=== PATIENT | female | born 1950 | race Caucasian/White ===

== ENCOUNTER 2018-10-19 17:22 | Inpatient (IN) ==
[2018-10-19] MEDS ORDERED: 0.9 % Sodium Chloride 1,000 ML IVC ONE ×2 (17:29→22:00)
[2018-10-19] MEDS ORDERED: Azithromycin 500 MG in D5% in Water 250 ML IVPB ONE (17:29)
[2018-10-19] MEDS ORDERED: Piperacillin/Tazobactam 3.375 GM in Water for inj. (sterile) 20 ML 20 ML IVP ONE (17:29)
--- NOTE | 2018-10-19 17:36 | Emergency Department Note ---
Disposition Clinical Impression: Sepsis associated hypotension Disposition: Still a Patient General Adult HPI - General Stated complaint: ANTONINO Time Seen by Provider: 10/19/18 17:28 Source: EMS Mode of arrival: EMS Limitations: altered mental status Nursing Notes Reviewed: Yes Vital Signs Reviewed: Yes - History of Present Illness HPI Narrative: Attestation note: Patient was seen with the emergency medicine resident/nurse practitioner /physician hospital aides and assistants teacher/transitional resident/medical student: Dr. Panda Varghese I have personally performed a face to face evaluation on this patient. I have reviewed and agree with history and physical examination patient management and disposition. Briefly the salient points of the case are as follows: 68-year-old female nonverbal from dementia unit of local [facility] via EMS for hypoxia fever worsening mental status cough. Patient has rhonchi bilaterally with rattling she was 87% on room air went up to 93 with supplemental oxygen patient has no external signs of trauma or cellulitis patient is tachycardic hypoxic tachypnea with a sore suspected she is on Levaquin for pneumonia patient meets SIRS criteria and likely septic but not in shock or severe at this point. Patient eloped modified sepsis implementation with judicious fluids. Providing 45 minutes critical care service for this patient. Awaiting labs chest x-ray catheter UA antibiotics and blood cultures and admission. Past Medical History - Past Medical History Medical history: Reports: hyperlipidemia, hypertension, myocardial infarction, seizures Psychiatric history: Reports: anxiety, bipolar - Social History Smoking Status: Former smoker Alcohol use: Reports: none Drug use: Reports: none
[2018-10-19] MEDS ORDERED: Piperacillin/Tazobactam 3.375 GM in 0.9 % Sodium Chloride Mini Bag 100 ML IVPB ONE (17:42)
[2018-10-19 18:12] LABS: Basophils % 0.2 %; Hematocrit 27.5 % (35.3-44.9); Hemoglobin 9.1 g/dL (11.5-15.4); Immature Granulocytes % 0.5 % (0-4); Lymphocytes # 0.6 K/mcL (0.6-4.6); Lymphocytes % 4.2 %; Mean Corpuscular HGB Conc 33.1 g/dL (31.6-35.5); Mean Corpuscular Hemoglobin 29.4 pg (28.0-33.3); Mean Platelet Volume 10.9 fL (9.4-12.4); Monocytes # 1.1 K/mcL (0.0-1.3); Monocytes % 8.2 %; Platelet Count 302 K/mcL (140-400); Red Blood Count 3.09 M/mcL (3.82-4.97); Red Cell Distribution Width 15.1 % (11.5-14.5); Segmented Neutrophils % 86.9 %
--- NOTE | 2018-10-19 18:16 | Emergency Department Note ---
Disposition Clinical Impression: Sepsis associated hypotension, Severe sepsis, Hospital-acquired pneumonia Disposition: Admitted As Inpatient Condition: Fair Time of Disposition: 20:46 General Adult HPI - General Chief complaint: ED Shortness of Breath/Dyspnea Stated complaint: ANTONINO Time Seen by Provider: 10/19/18 17:28 Source: EMS Mode of arrival: EMS Limitations: altered mental status Nursing Notes Reviewed: Yes Vital Signs Reviewed: Yes - History of Present Illness HPI Narrative: 68-year-old female from a nursing facility history of Alzheimer's altered at all times does not speak normally able to walk they have noticed increased weakness decrease in her oxygen saturation as well as increased cough and congestion. They said they did get a fever of 102.1. She has been on Levaquin for 2-3 days for an upper respiratory infection. They said that her oxygen saturation was down to 88 when they arrived placed on oxygen 4 L should go up to the 90s. She normally is on oxygen. Otherwise difficult to get further history from patient due to mental status. Pain Scale: 0 - Related Data Home Medications Medication Instructions Recorded Confirmed Acetaminophen [Non-Aspirin] 650 mg PO Q4H PRN 10/19/18 10/19/18 Ammonium Lactate 1 appl TP BID 10/19/18 10/19/18 Aspirin Enteric Coated [Aspirin EC] 81 mg PO DAILY 10/19/18 10/19/18 Bisacodyl [Gentle Laxative] 10 mg RC DAILY PRN 10/19/18 10/19/18 Buspirone HCl [Buspar] 10 mg PO BID 10/19/18 10/19/18 Divalproex Sodium [Depakote 250 mg PO TID 10/19/18 10/19/18 Sprinkle] FLUoxetine HCl [Fluoxetine HCl] 40 mg PO DAILY 10/19/18 10/19/18 Gabapentin [Neurontin] 300 mg PO DAILY 10/19/18 10/19/18 Hyoscyamine SL [Levsin SL] 0.125 mg SL BID 10/19/18 10/19/18 Levothyroxine Sodium 112 mcg PO 0630 10/19/18 10/19/18 Magnesium Hydroxide [Milk of 30 ml PO Q24H PRN 10/19/18 10/19/18 Magnesia] Seamus/Poly/DEX Opth OINT [Maxitrol 1 appl BOTH EYES HS 10/19/18 10/19/18 OPTH Oint] Nystatin POWDER [Nystop] 1 appl TP TID 10/19/18 10/19/18 Quetiapine Fumarate [Seroquel] 25 mg PO BID 10/19/18 10/19/18 Quetiapine Fumarate [Seroquel] 100 mg PO BID 10/19/18 10/19/18 Sennosides/Docusate Sodium [Colace 1 each PO DAILY 10/19/18 10/19/18 2-in-1 Tablet] Vitamin E 400 unit PO DAILY 10/19/18 10/19/18 Allergies Allergy/AdvReac Type Severity Reaction Status Date / Time [place] Allergy Anaphylaxis Verified 10/19/18 17:35 Limitations: ROS unobtainable due to patients medical condition Past Medical History - Past Medical History Attestation: Yes The following information was validated with the patient. Source: patient Medical history: Reports: GERD, hyperlipidemia, hypertension, myocardial infarction, seizures, thyroid disease Psychiatric history: Reports: anxiety, bipolar, schizophrenia - Social History Smoking Status: Former smoker Smokeless Tobacco Status: No Alcohol use: Reports: none Drug use: Reports: none Physical Exam - General Limitations: altered mental status General appearance: lethargic - Head Head exam: atraumatic, normocephalic, normal inspection - Eye Eye exam: Present: normal appearance, PERRL, EOMI - ENT ENT exam: normal exam, normal oropharynx, mucous membranes moist - Neck Neck exam: Present: normal inspection, full ROM, trachea midline - Chest Chest inspection: Present: normal inspection, symmetric chest wall rise - Respiratory Respiratory exam: Present: wheezes (And rhonchi bilaterally). Absent: respiratory distress, stridor, accessory muscle use, prolonged expiratory phase - Cardiovascular Cardiovascular exam: Present: normal rhythm, tachycardia, normal heart sounds - Abdominal Exam Abdominal exam: Present: soft, Non-Tender, normal bowel sounds. Absent: tenderness, distention, guarding, rebound, rigidity - Extremities Exam Extremities exam: Present: normal inspection, full ROM. Absent: tenderness, pedal edema - Back Exam Back exam: Present: normal inspection, full ROM. Absent: tenderness - Expanded Neurological Exam Patient oriented to: Absent: person, place, time Coma Scale Eye Opening: Spontaneous Coma Scale Motor Response: Withdraws to Pain Coma Scale Verbal Response: Confused Coma Scale Total: 12 - Skin Skin exam: Present: warm, dry, intact, normal color Course Course Narrative: We will treat patient as sepsis she is not in severe sepsis at this time or septic shock. We will give patient 1 L of IV fluids and continue to monitor her. We will get CBC, BMP, blood cultures, lactate we will get chest x-ray and urine dialysis. Patient okay with this plan. Patient most likely has pneumonia clinically she failed Levaquin so we will start patient on broad-spectrum antibiotics is also could be due to aspiration. We will cover her with azithromycin, vancomycin, Zosyn. Patient stable at this time. Disposition most likely admission - Reevaluation(s) Reevaluation #1: Patient reevaluated and she had a mildly decreased blood pressure of 88/60. I ordered a second liter of IV fluids. Patient also received DuoNeb treatments. Time: 18:51 Reevaluation #2: Patient reevaluated after receiving 1 1/2 L of fluid patient's blood pressure has responded well is 98/63. With a map of 78. Patient did receive DuoNeb's her auction saturations went up to 98% after receiving that the wheezing was subsided but she is still rhonchorous. Time: 19:36 Vital Signs Temperature 99.0 F 10/19/18 17:23 Pulse Rate 114 10/19/18 17:23 Respiratory Rate 20 10/19/18 17:23 Blood Pressure 89/64 10/19/18 17:23 O2 Sat by Pulse Oximetry 89 10/19/18 17:23 Temperature 99.0 F 10/19/18 17:23 Pulse Rate 93 10/19/18 19:52 Respiratory Rate 20 10/19/18 19:52 Blood Pressure 93/66 10/19/18 19:52 O2 Sat by Pulse Oximetry 98 10/19/18 19:52 Oxygen Delivery Oxygen Delivery Nasal Cannula Medical Decision Making - [facility] Narrative Medical decision making narrative: Patient presented here as hypoxia and difficulty in breathing. She was shown to have a pneumonia dye focal was treated with as hospital acquired pneumonia t reated with Zosyn, azithromycin, vancomycin. She appears to be on Levaquin for approximate 2-3 days for upper respiratory infection. Patient did meet severe sepsis criteria as she did have an elevated lactate. Patient did receive her 30 mL/kg bolus of IV fluids. She responded well to this. Patient did not meet septic shock criteria. Her blood pressure did not respond well to fluids. Patient received DuoNeb's she was mildly hypoxic before that after receiving these her oxygen saturations turnaround further 98% well on 4 L. Patient is stable for the floor. Patient needs to be admitted for further evaluation. I spoke with the hospitalist Dr. Galvan who agreed to admit the patient to their service. Patient is admitted in stable condition. Chest X-Ray 10/19/18 17:28 IMPRESSION: Multifocal right lung pulmonary opacity. Findings may represent a multifocal pneumonia or asymmetric multifocal pulmonary edema. Recommend short interval follow-up examination, and radiographic follow-up to complete resolution. Enlarged cardiomediastinal silhouette is not further evaluated due to patient rotation. D/ / 10/19/2018 18:42:48 Aniceto Mercedes MD / judie Interpreting Provider: Aniceto Mercedes MD - Medical Records Medical records reviewed: Yes I reviewed the patient's medical records. - Lab Data Lab results reviewed: Yes I reviewed the patient's lab results. Result diagrams: 10/19/18 17:59 10/19/18 17:59 Lab Results 10/19/18 10/19/18 10/19/18 Range/Units 17:59 17:59 17:59 WBC 13.8 H (4.3-11.1) K/mcL RBC 3.09 L (3.82-4.97) M/mcL Hgb 9.1 L (11.5-15.4) g/dL Hct 27.5 L (35.3-44.9) % MCV 89.0 (83.0-100.0) fL MCH 29.4 (28.0-33.3) pg MCHC 33.1 (31.6-35.5) g/dL RDW 15.1 H (11.5-14.5) % Plt Count 302 (140-400) K/mcL MPV 10.9 (9.4-12.4) fL Immature Gran % 0.5 (0-4) % Seg Neutrophils % 86.9 % Lymphocytes % 4.2 % Monocytes % 8.2 % Eosinophils % 0.0 % Basophils % 0.2 % Neutrophils # 12.0 H (1.6-8.9) K/mcL Lymphocytes # 0.6 (0.6-4.6) K/mcL Monocytes # 1.1 (0.0-1.3) K/mcL Eosinophils # 0.0 (0.0-0.6) K/mcL Basophils # 0.0 (0.0-0.2) K/mcL Sodium 138 (136-145) mEq/L Potassium 3.7 (3.5-5.1) mEq/L Chloride 104 (98-107) mEq/L Carbon Dioxide 23 (23-29) mEq/L BUN 26 H (8-23) mg/dL Creatinine 0.47 L (0.60-1.20) mg/dL Est GFR ( Amer) > 60 (> 60) Est GFR (Non-Af Amer) > 60 (> 60) BUN/Creatinine Ratio 55 H (6-26) Glucose 177 H (70-105) mg/dL Calculated Osmolality 295 (280-300) Lactic Acid 2.8 H (0.5-2.2) mmol/L Calcium 8.0 L (8.6-10.3) mg/dL Troponin I 0.73 H* (< 0.04) ng/mL - Radiology Data Radiology results reviewed: Yes I reviewed the patient's radiology results. - EKG Data EKG #1 EKG attestation: Yes I reviewed and interpreted this EKG. EKG results narrative: EKG done at 1737 review by myself and attending shows sinus tachycardia at a rate of 109, ND interval 135, QRS 145 QTc 524. There is no acute ST changes no acute T-wave changes no other signs of ischemia she does have elevations in the ST segment in V2. No signs of hypertrophy, heart, heart block. No WPW/Brugada/HOCM. When compared with old EKG done 11/03/17 she also has the ST elevations in V2. Otherwise no other changes Sepsis Event Note - Evaluation Current Stage of Suspected Sepsis: severe sepsis Possible Source of Sepsis: pulmonary - Focused Exam Date of Encounter: 10/19/18 Time of Encounter: 18:52 Vital Signs: Vital Signs Temp Pulse Resp BP Pulse Ox 10/19/18 19:52 93 20 93/66 98 10/19/18 19:13 97 22 85/65 92 10/19/18 19:05 20 87 10/19/18 18:49 101 20 88/70 87 10/19/18 17:23 99.0 F 114 20 89/64 89 Respiratory Exam: Present: wheezes, rhonchi Cardiovascular Exam: Present: RRR Capillary Refill: < 2 seconds Peripheral Pulse Strength: 3+ normal Peripheral Pulse Location: Radial Skin Exam: normal turgor - Bedside Monitoring Bedside Ultrasound Performed: No Passive Leg raise/fluid bolus: fluid responsive
[2018-10-19 18:35] LABS: BUN/Creatinine Ratio 55 (6-26); Blood Urea Nitrogen 26 mg/dL (8-23); Carbon Dioxide 23 mEq/L (23-29); Chloride 104 mEq/L (98-107); Glucose 177 mg/dL (70-105); Osmolality,Calculated 295 (280-300); Potassium 3.7 mEq/L (3.5-5.1); Sodium 138 mEq/L (136-145); eGFR For Non-African Americans > 60 (> 60)
[2018-10-19] MEDS ORDERED: Ipratropium/Albuterol Neb 3 ML IH ONE (18:41)
[2018-10-19] MEDS: 0.9 % Sodium Chloride 1,000 ML IVC ONE ×2 (18:48→19:17)
[2018-10-19 18:52] LABS: Troponin I 0.73 ng/mL (< 0.04)
--- NOTE | 2018-10-19 21:34 | Internal Med History&Physical ---
<Kirk Arnold S - Last Filed: 10/20/18 00:13> Date of Encounter: 10/20/18 Time of Encounter: 22:20 Internal Medicine - H&P: HPI Chief complaint: PNA Admitted From: Long-term Nursing Facility Plans for Post Hospital Care: Transfer Detention Facility History of present illness: Ms. Douglass is a 68 year old female with PMH of alzheimer's, CAD, MO, hypothyroidism, constipation and GERD. She is here from a skilled nursing and failed outpatient PNA therapy with levaquin. She was given 2-3 days of LQ and a pperently didn't get any better so she was brought into [facility] for further evaluation. At baseline she doesn't speak at all times per ER resident note and per what the skilled nursing said, they have noticed increased weakness decrease in her oxygen saturation as well as increased cough and congestion. They said they did get a fever of 102.1, she has remained afebrile while here. Reported that her oxygen saturation was down to 88 when they arrived placed on oxygen 4 L should go up to the 90s. She normally is on oxygen, unknown how much. Patient unable to give any history. In the ER she was found to meet severe sepsis criteria. She was given fluid bolus and started on broad spectrum antibiotics. XR chest showed likely multifocal right lung pulmonary opacity. EKG showed shows sinus tachycardia at a rate of 109, MO interval 135, QRS 145 QTc 524. There is no acute ST changes no acute T-wave changes no other signs of ischemia she does have elevations in the ST segment in V2, which were previously noted on an old EKG. Cardiology was consulted by ER resident and Dr Cadena agrees the EKG does not show any ST elevation and thinks that patient can be trended with troponins to give aspirin and nitroglycerin as needed for chest pain. She continued to be hypotensive and instead of being transferred to for admission, she will go to the ICU. Past Med Surg Social Fam HX - Past Medical History Medical history: GERD, hyperlipidemia, hypertension, myocardial infarction, seizures, thyroid disease Additional medical history: Alzheimers. CAD Psychiatric history: anxiety, bipolar, schizophrenia - Social History Smoking Status: Former smoker Smokeless Tobacco Status: No Alcohol use: none Drug use: none Internal Medicine - H&P: Meds Acetaminophen [Non-Aspirin] 650 mg PO Q4H PRN 10/19/18 [History] Ammonium Lactate 1 appl TP BID 10/19/18 [History] Aspirin Enteric Coated [Aspirin EC] 81 mg PO DAILY 10/19/18 [History] Bisacodyl [Gentle Laxative] 10 mg RC DAILY PRN 10/19/18 [History] Buspirone HCl [Buspar] 10 mg PO BID 10/19/18 [History] Divalproex Sodium [Depakote Sprinkle] 250 mg PO TID 10/19/18 [History] FLUoxetine HCl [Fluoxetine HCl] 40 mg PO DAILY 10/19/18 [History] Gabapentin [Neurontin] 300 mg PO DAILY 10/19/18 [History] Hyoscyamine SL [Levsin SL] 0.125 mg SL BID 10/19/18 [History] Levothyroxine Sodium 112 mcg PO 0630 10/19/18 [History] Magnesium Hydroxide [Milk of Magnesia] 30 ml PO Q24H PRN 10/19/18 [History] Seamus/Poly/DEX Opth OINT [Maxitrol OPTH Oint] 1 appl BOTH EYES HS 10/19/18 [History] Nystatin POWDER [Nystop] 1 appl TP TID 10/19/18 [History] Quetiapine Fumarate [Seroquel] 25 mg PO BID 10/19/18 [History] Quetiapine Fumarate [Seroquel] 100 mg PO BID 10/19/18 [History] Sennosides/Docusate Sodium [Colace 2-in-1 Tablet] 1 each PO DAILY 10/19/18 [History] Vitamin E 400 unit PO DAILY 10/19/18 [History] Allergy/AdvReac Type Severity Reaction Status Date / Time [place] Allergy Anaphylaxis Verified 10/19/18 17:35 ROS unobtainable: due to mental status All Systems PM: A 10-system review of systems was performed and is negative for pertinent findings except as documented above in the HPI. - Constitutional Vitals: Temp Pulse Resp BP Pulse Ox 99.0 F 93 20 93/66 98 10/19/18 17:23 10/19/18 19:52 10/19/18 19:52 10/19/18 19:52 10/19/18 19:52 General appearance: Present: A&O X 0, disheveled. Absent: answers questions appropriately Exam: general - aox0, disschelved, unable to answer questions heent - dry MM, NCAT, sclera appear pale neck - no jvd, trachea midline cardio- tacycardia s1s2 cta lungs - decreased breath sounds with severe rhonchi, coarse breath sounds in all lung rao abd - soft NTND, no peritoneal signs, no rebound or guarding extremities - laying in position, unable to assess strength, no pitting edema skin - decreased capillary refill, decreased skin turgor, warm, dry psych- unable to assess neuro - unable to assess Internal Med - H&P Results - Labs CBC & Chem 7: 10/19/18 17:59 10/19/18 17:59 Labs: Short CBC 10/19/18 Range/Units 17:59 WBC 13.8 H (4.3-11.1) K/mcL Hgb 9.1 L (11.5-15.4) g/dL Hct 27.5 L (35.3-44.9) % Plt Count 302 (140-400) K/mcL Neutrophils # 12.0 H (1.6-8.9) K/mcL BMP 10/19/18 17:59 Sodium 138 Potassium 3.7 Chloride 104 Carbon Dioxide 23 BUN 26 H Creatinine 0.47 L Glucose 177 H Calcium 8.0 L Cardiac Enzymes 10/19/18 Range/Units 17:59 Troponin I 0.73 H* (< 0.04) ng/mL - Impressions ITS Impressions Chest X-Ray 10/19/18 17:28 IMPRESSION: Multifocal right lung pulmonary opacity. Findings may represent a multifocal pneumonia or asymmetric multifocal pulmonary edema. Recommend short interval follow-up examination, and radiographic follow-up to complete resolution. Enlarged cardiomediastinal silhouette is not further evaluated due to patient rotation. D/ / 10/19/2018 18:42:48 Aniceto Mercedes MD / judie Interpreting Provider: Aniceto Mercedes MD - Assessment and Plan (1) Severe sepsis Current Visit: Yes Status: Acute Assessment and plan: Pt presenting from skilled nursing with failed outpatient levaquin therapy, worsening symptoms and hypoxia - meets SIRS criteria for BP, HR, RR, and WBC count - has remained afebrile since admission - lactic acid 2.8 on admission, decreased to 1.9 after IVF given - got 2 L bolus of IVF, followed by another 1 L bolus at 22:00 due to continued hypotension and SBP in the 80's XR chest showing: - Multifocal right lung pulmonary opacity. - Findings may represent a multifocal pneumonia or asymmetric multifocal pulmonary edema Sepsis likely secondary to PNA, healthcare/hospital acquired; pt is an aspiration risk given mental status Plan: - finish fluid bolus followed by 100cc/hr 0.9% NS - blood cx pending - MRSA screen pending - sputum cx pending - urine antigens pending - lactic acid at 00:45 pending - continue vancomycin, zosyn and levaquin day 1 - keep O2 sat >88% - will add pressor support if MAP<65 - telemetry monitoring - continuous O2 monitoring - FEN: NPO - DVT prophylaxis: scd - consults: cardiology consulted in the setting of EKG changes and elevated troponins acute care surgery consulted for CVC placement, Dr Spear - dispo: will require ICU admission and IV abx Note that the pt is a DNR-CCA per paperwork. No family available at bedside. No POA on file. (2) Pneumonia Current Visit: Yes Status: Acute Assessment and plan: See plan as above for sepsis. Qualifiers: Pneumonia type: due to unspecified organism Laterality: unspecified laterality Lung location: unspecified part of lung Qualified Code(s): J18.9 - Pneumonia, unspecified organism (3) Anemia Current Visit: Yes Status: Acute Assessment and plan: No clear baseline of hemoglobin as pt only has one other recorded value from 2018. - hemoglobin on admission 9.1 - [facility] - in the setting of normal MCV, may be GI bleed Plan: - type and cross - FOBT pending - hold aspirin - H&H q6hr - protonix IVP q12hr - iron panel pending - transfuse to keep hgb>7 Qualifiers: Anemia type: unspecified type Qualified Code(s): D64.9 - Anemia, unspecified (4) Elevated troponin Current Visit: Yes Status: Acute Assessment and plan: Troponin 0.73 on admission. Likely secondary to severe sepsis but given abnormal EKG, will consult cardiology. ECHO pending. Trend troponin x3. (5) Leukocytosis Current Visit: Yes Status: Acute Assessment and plan: WBC 13.8, likely secondary to infection. Will continue to monitor. Qualifiers: Leukocytosis type: unspecified Qualified Code(s): D72.829 - Elevated white blood cell count, unspecified (6) Alzheimer disease Current Visit: No Status: Chronic Assessment and plan: Pt with severe Alzheimer's. Nonverbal. Continue home meds when reconciled. Qualifiers: Alzheimer's disease onset: unspecified onset Dementia behavioral disturbance: with behavioral disturbance Qualified Code(s): G30.9 - Alzheimer's disease, unspecified; F02.81 - Dementia in other diseases classified elsewhere with behavioral disturbance (7) Hypothyroidism Current Visit: No Status: Chronic Assessment and plan: con't synthroid when meds reconciled. Qualifiers: Hypothyroidism type: acquired Qualified Code(s): E03.9 - Hypothyroidism, unspecified (8) Sepsis associated hypotension Current Visit: Yes Status: Acute Assessment and plan: Continue to monitor BP. Last BP 80/62. Pt will be moved from 2A to ICU for further monitoring. CVC access by surgery. (9) DVT prophylaxis Current Visit: Yes Status: Acute Assessment and plan: scd (10) Acute metabolic encephalopathy Current Visit: Yes Status: Acute Assessment and plan: Likely secondary to underlying infxn versus dementia. (11) T2DM (type 2 diabetes mellitus) Current Visit: No Status: Chronic Assessment and plan: Not on home rx for T2DM but glucose elevated on admission. Accucheck q6hr since NPO. LDSS. HbA1c pending. Qualifiers: Diabetes mellitus intermediate teacher insulin use: without shelter use Diabetes mellitus complication status: with hyperglycemia Qualified Code(s): E11.65 - Type 2 diabetes mellitus with hyperglycemia - Time Spent With Patient Total time spent is greater than 50% in coordination of care (as documented) at patient's floor/unit and/or counseling patient: 25 - 35 minutes <Sharif Batres - Last Filed: 10/20/18 00:44> Date of Encounter: 10/19/18 Internal Medicine - H&P: HPI History of present illness: Ms. Douglass is a 68 year old female All Systems PM: A 10-system review of systems was performed and is negative for pertinent findings except as documented above in the HPI. - Constitutional Vitals: Temp Pulse Resp BP Pulse Ox 96.3 F L 84 18 105/81 96 10/19/18 23:30 10/19/18 23:30 10/19/18 23:30 10/19/18 23:30 10/19/18 23:30 Internal Med - H&P Results - Labs CBC & Chem 7: 10/19/18 17:59 10/19/18 17:59 Labs: Short CBC 10/19/18 Range/Units 17:59 WBC 13.8 H (4.3-11.1) K/mcL Hgb 9.1 L (11.5-15.4) g/dL Hct 27.5 L (35.3-44.9) % Plt Count 302 (140-400) K/mcL Neutrophils # 12.0 H (1.6-8.9) K/mcL BMP 10/19/18 17:59 Sodium 138 Potassium 3.7 Chloride 104 Carbon Dioxide 23 BUN 26 H Creatinine 0.47 L Glucose 177 H Calcium 8.0 L Cardiac Enzymes 10/19/18 10/19/18 Range/Units 17:59 22:03 Troponin I 0.73 H* 0.65 H* (< 0.04) ng/mL - Impressions ITS Impressions Chest X-Ray 10/19/18 17:28 IMPRESSION: 1. Multifocal right lung pulmonary opacity. Findings may represent a multifocal pneumonia or asymmetric multifocal pulmonary edema. 2. Enlarged cardiomediastinal silhouette is not further evaluated due to patient rotation. RECOMMENDATION: Recommend short interval follow-up examination, and radiographic follow-up to complete resolution. D/ / 10/19/2018 18:42:48 Aniceto Mercedes MD / judie Interpreting Provider: Aniceto Mercedes MD - Time Spent With Patient Total time spent is greater than 50% in coordination of care (as documented) at patient's floor/unit and/or counseling patient: - Attending Attestation I saw and evaluated the patient. I reviewed the residents note, performed my own physical examination and agree with findings and plan as documented in the residents note. Patient seen and examined on 10/19/18. Patient presented with pneumonia, has baseline dementia. Failed outpatient management. In ER patient had low blood pressures, despite fluid resuscitation. Discussed with surgery, and central line will be placed if needed. Blood pressures have improved since coming to the ICU. We will continue to monitor closely, and treat sepsis/pneumonia as above. Lactic acid and troponin both are declining. Continue to trend troponin, echo in the morning with cardiology consultation.
[2018-10-19] MEDS ORDERED: Naloxone 0.4 MG/ML INJ IVP PRN (21:35)
[2018-10-19] MEDS ORDERED: *HR* Dextrose 50 % in Water (Syg) 50 ML SYRINGE IVP PRN (22:11)
[2018-10-19] MEDS ORDERED: D5% in Water 1,000 ML IVC PRN (22:11)
[2018-10-19] MEDS ORDERED: Dextrose Gel 15 GM/37.5 ML TUBE PO PRN ×2 (22:11)
[2018-10-19] MEDS: Levalbuterol Neb 1.25 MG/3 ML IH SCH (22:30)
[2018-10-19] MEDS ORDERED: 0.9 % Sodium Chloride 1,000 ML IVC SCH (22:30)
[2018-10-19] MEDS: Insulin LISPRO 300 UNITS/3 ML VIAL SQ SCH (23:15)
[2018-10-19 23:23] LABS: % Iron Saturation 3 % (15-50); Iron 10 mcg/dL (50-170); Transferrin 216 mg/dL (203-362)
[2018-10-20] MEDS: Piperacillin/Tazobactam 3.375 GM in 0.9 % Sodium Chloride Mini Bag 100 ML IVPB SCH ×3 (01:00→17:18)
[2018-10-20 02:02] LABS: Hematocrit 26.1 % (35.3-44.9)
[2018-10-20 02:12] LABS: Hemoglobin 8.3 g/dL (11.5-15.4)
[2018-10-20] MEDS: Levalbuterol Neb 1.25 MG/3 ML IH SCH ×5 (03:42→22:08)
[2018-10-20 04:28] LABS: Bilirubin,Urine Negative (Negative); Blood,Urine Trace (Negative); Clarity,Urine Cloudy (Clear); Color,Urine Yellow (Yellow); Glucose,Urine (UA) Normal (Normal); Ketones,Urine Negative (Negative); Leukocyte Esterase,Urine Moderate (Negative); Nitrite,Urine Negative (Negative); Protein,Urine 30 mg/dL (Neg-Trace); Specific Gravity,Urine > 1.030 (1.010-1.025); Urobilinogen,Urine Normal (Normal)
[2018-10-20 04:30] LABS: Bacteria,Urine None Seen per hpf (None-Few); Hyaline Casts,Urine Moderate per lpf (None-Few); RBC,Urine 0-3 per hpf (0-3); Squamous Epithelial Cell,Urine Many per lpf (None-Few); WBC,Urine TNTC per hpf (0-3)
[2018-10-20 05:03] LABS: Hematocrit 26.5 % (35.3-44.9); Hemoglobin 8.3 g/dL (11.5-15.4); Mean Corpuscular HGB Conc 31.3 g/dL (31.6-35.5); Mean Corpuscular Hemoglobin 28.9 pg (28.0-33.3); Mean Corpuscular Volume 92.3 fL (83.0-100.0); Mean Platelet Volume 11.2 fL (9.4-12.4); Platelet Count 244 K/mcL (140-400); Red Blood Count 2.87 M/mcL (3.82-4.97); Red Cell Distribution Width 15.4 % (11.5-14.5)
[2018-10-20 05:23] LABS: BUN/Creatinine Ratio 58 (6-26); Blood Urea Nitrogen 18 mg/dL (8-23); Calcium 7.9 mg/dL (8.6-10.3); Carbon Dioxide 22 mEq/L (23-29); Chloride 110 mEq/L (98-107); Glucose 88 mg/dL (70-105); Osmolality,Calculated 293 (280-300); Potassium 3.5 mEq/L (3.5-5.1); Sodium 141 mEq/L (136-145); eGFR For Non-African Americans > 60 (> 60)
[2018-10-20] MEDS: Pantoprazole 40 MG VIAL IVP SCH ×2 (07:32→17:15)
[2018-10-20] MEDS: Insulin LISPRO 300 UNITS/3 ML VIAL SQ SCH ×4 (07:32→20:58)
--- NOTE | 2018-10-20 07:44 | Internal Med Progress Note ---
Hospitalist Progress Note - Encounter Date of Encounter: 10/20/18 Time of Encounter: 07:32 - Subjective Interval History: Patient seen and examined this morning at bedside. No acute events. Patient had 3 50 mL urine output since midnight. Patient altered and not able to offer any complaints however this is likely her baseline per previous reports. P atient had a bowel movement which was nonbloody or melanotic. - Exam Vitals: Temp Pulse Resp BP Pulse Ox 98.2 F 83 19 101/75 92 10/20/18 04:18 10/20/18 07:00 10/20/18 07:00 10/20/18 07:00 10/20/18 07:00 Exam: General: In no acute distress. Respiratory exam: no accessory muscle use. Diffuse rhonchi bilaterally Cardiovascular exam: RRR, +S1, +S2. no murmur, gallop, rubs. GI/Abdominal exam: Non-tender, Non-distended, normal bowel sounds, soft, no peritoneal signs. Extremities exam: no pedal edema, pulses palpable in b/l lower extremities. no calf tenderness Neurological exam: awake and alert, not fully cooperative, no focal deficits appreciated Skin exam: No skin rash noted - Assessment and Plan (1) Sepsis associated hypotension Current Visit: Yes Status: Acute (2) Severe sepsis Current Visit: Yes Status: Acute (3) Pneumonia Current Visit: Yes Status: Acute (4) DVT prophylaxis Current Visit: Yes Status: Acute (5) Anemia Current Visit: Yes Status: Acute (6) Elevated troponin Current Visit: Yes Status: Acute (7) Leukocytosis Current Visit: Yes Status: Acute (8) Alzheimer disease Current Visit: No Status: Chronic (9) Hypothyroidism Current Visit: No Status: Chronic (10) Acute metabolic encephalopathy Current Visit: Yes Status: Acute (11) T2DM (type 2 diabetes mellitus) Current Visit: No Status: Chronic - Summary of Assessment and Plan Summary of Assessment and Plan: Assessment Severe sepsis Multifocal Pneumonia unclear organism Anemia Elevated troponin Alzheimer's dementia- nonverbal Acute metabolic encephalopathy Diabetes Hypothyroidism DVT prophylaxis Plan - Improved after IV fluid resuscitation appropriately via central line put in by surgery. Continue empiric vancomycin and Zosyn and Levaquin. Follow blood, urine and sputum cultures, MRSA screen and urine antigen. Will descalate by tomorrow. - Anemia. Hb downtrending after some IV fluids but stabilized now. Continue to trend hemoglobin. Not on anticoagulation. Follow-up stool occult. Has iron deficiency likely given mental status. Continue Protonix. - Troponins downtrending. Likely related to sepsis. f/u ECHO. Cardiology consulted. - Continue home Synthroid, sliding scale insulin and Accu-Cheks. Low A1c - Will resume PO meds after speech evaluation - Transfer out of ICU to telemetry. - Time Spent with Patient Total time spent is greater than 50% in coordination of care (as documented) at patient's floor/unit and/or counseling patient: Internal Medicine: Result - Labs CBC & Chem 7: 10/20/18 04:35 10/20/18 04:35 Labs: Short CBC 10/19/18 10/20/18 10/20/18 Range/Units 17:59 01:52 04:35 WBC 13.8 H 6.8 D (4.3-11.1) K/mcL Hgb 9.1 L 8.3 L 8.3 L (11.5-15.4) g/dL Hct 27.5 L 26.1 L 26.5 L (35.3-44.9) % Plt Count 302 244 (140-400) K/mcL Neutrophils # 12.0 H (1.6-8.9) K/mcL BMP 10/19/18 10/20/18 17:59 04:35 Sodium 138 141 Potassium 3.7 3.5 Chloride 104 110 H Carbon Dioxide 23 22 L BUN 26 H 18 Creatinine 0.47 L 0.31 L Glucose 177 H 88 Calcium 8.0 L 7.9 L Cardiac Enzymes 10/19/18 10/19/18 10/20/18 Range/Units 17:59 22:03 04:35 Troponin I 0.73 H* 0.65 H* 0.26 H* (< 0.04) ng/mL Urine 10/20/18 Range/Units 04:00 Urine Color Yellow (Yellow) Urine Clarity Cloudy A (Clear) Urine pH 6.0 (5.0-8.0) pH Units Ur Specific [place] > 1.030 H (1.010-1.025) Urine Protein 30 H (Neg-Trace) mg/dL Urine Glucose (UA) Normal (Normal) mg/dL - Impressions Impressions Chest X-Ray 10/19/18 17:28 IMPRESSION: 1. Multifocal right lung pulmonary opacity. Findings may represent a multifocal pneumonia or asymmetric multifocal pulmonary edema. 2. Enlarged cardiomediastinal silhouette is not further evaluated due to patient rotation. RECOMMENDATION: Recommend short interval follow-up examination, and radiographic follow-up to complete resolution. D/ / 10/19/2018 18:42:48 Aniceto Mercedes MD / judie Interpreting Provider: Aniceto Mercedes MD Consult Discharge Plan - Plan Referrals: Yang Kyle MD [Primary Care Provider] - (3) Pneumonia Qualifiers: Pneumonia type: due to unspecified organism Laterality: unspecified laterality Lung location: unspecified part of lung Qualified Code(s): J18.9 - Pneumonia, unspecified organism (5) Anemia Qualifiers: Anemia type: unspecified type Qualified Code(s): D64.9 - Anemia, unspecified (7) Leukocytosis Qualifiers: Leukocytosis type: unspecified Qualified Code(s): D72.829 - Elevated white blood cell count, unspecified (8) Alzheimer disease Qualifiers: Alzheimer's disease onset: unspecified onset Dementia behavioral disturbance: with behavioral disturbance Qualified Code(s): G30.9 - Alzheimer's disease, unspecified; F02.81 - Dementia in other diseases classified elsewhere with behavioral disturbance (9) Hypothyroidism Qualifiers: Hypothyroidism type: acquired Qualified Code(s): E03.9 - Hypothyroidism, unspecified (11) T2DM (type 2 diabetes mellitus) Qualifiers: Diabetes mellitus superintendent [employer] insulin use: without snf use Diabetes mellitus complication status: with hyperglycemia Qualified Code(s): E11.65 - Type 2 diabetes mellitus with hyperglycemia
[2018-10-20] MEDS ORDERED: Azithromycin 500 MG in D5% in Water 250 ML IVPB SCH (08:00)
--- NOTE | 2018-10-20 08:46 | Cardiology Consult Note ---
Date of Encounter: 10/20/18 Time of Encounter: 10:00 Assessment and Plan (1) Elevated troponin Current Visit: Yes Status: Acute -She presents to the ED with the elevated troponin 0.73 which has been trending down 0.65 -> 0.26 -Her most recent echocardiogram showed an LVEF of 40-45%, moderate segmental left ventricle systolic function -EKG in the ED was negative for any ST-T changes, heart strain/block, brugada, WPW, HOCM -Patient's chest x-ray showed multifocal right lung pulmonary opacity with concerns for multifocal pneumonia or asymmetric multifocal pulmonary edema -Elevated troponins were likely secondary to demand ischemia because of her se jin sepsis and pneumonia -Medical management daniel be recommended at this point and no indications for any coronary intervention Discussion w patient/family: The assessment and plan as outlined above was discussed with the patient and/or family members who expressed understanding and agreement. All questions were answered. Thank you for involving us in the care of your patient. Please call with any questions. History of Present Illness Consult date: 10/20/18 History of present illness: Ms. Douglass is a 68 year old female past medical history of hypertension, hyperlipidemia who [facility] because of decrease in her oxygen sats and increasing weakness, cough and congestion. Patient was found to have multifocal right lung pulmonary opacities with concerns for pneumonia . She also met the SIRS criteria . Cardiology was consulted because of elevated troponins of 0.73 admission which have been trending down ever since then, most recent value being 0.26. Her EKG showed a sinus tachycardia at a rate of 109, no ST-T changes/LVH/Brugada/WPW. Patient has a history of arthrosclerotic heart disease and is on aspirin. I spoke to the nurse at the [facility] and learnt that patient has not had any stress tests in the recent past or Hx of any stent placement /CABG. Her most recent echocardiogram showed an LVEF of 40-45% which was reduced from her last echo from 06/24/18 which showed an LVEF of 60%. Past Med Surg Social Fam HX - Past Medical History Medical history: GERD, hyperlipidemia, hypertension, myocardial infarction, seizures, thyroid disease Additional medical history: Alzheimers. CAD Psychiatric history: anxiety, bipolar, schizophrenia - Past Surgical History Additional surgical history: unable to do history w/pt due to incomprehensable speech - Social History Smoking Status: Former smoker Smokeless Tobacco Status: No Alcohol use: none Drug use: none Medications and Allergies Acetaminophen [Non-Aspirin] 650 mg PO Q4H PRN 10/19/18 [History] Ammonium Lactate 1 appl TP BID 10/19/18 [History] Aspirin Enteric Coated [Aspirin EC] 81 mg PO DAILY 10/19/18 [History] Bisacodyl [Gentle Laxative] 10 mg RC DAILY PRN 10/19/18 [History] Buspirone HCl [Buspar] 10 mg PO BID 10/19/18 [History] Divalproex Sodium [Depakote Sprinkle] 250 mg PO TID 10/19/18 [History] FLUoxetine HCl [Fluoxetine HCl] 40 mg PO DAILY 10/19/18 [History] Gabapentin [Neurontin] 300 mg PO DAILY 10/19/18 [History] Hyoscyamine SL [Levsin SL] 0.125 mg SL BID 10/19/18 [History] Levothyroxine Sodium 112 mcg PO 0630 10/19/18 [History] Magnesium Hydroxide [Milk of Magnesia] 30 ml PO Q24H PRN 10/19/18 [History] Seamus/Poly/DEX Opth OINT [Maxitrol OPTH Oint] 1 appl BOTH EYES HS 10/19/18 [History] Nystatin POWDER [Nystop] 1 appl TP TID 10/19/18 [History] Quetiapine Fumarate [Seroquel] 25 mg PO BID 10/19/18 [History] Quetiapine Fumarate [Seroquel] 100 mg PO BID 10/19/18 [History] Sennosides/Docusate Sodium [Colace 2-in-1 Tablet] 1 each PO DAILY 10/19/18 [His tory] Vitamin E 400 unit PO DAILY 10/19/18 [History] Allergy/AdvReac Type Severity Reaction Status Date / Time [place] Allergy Anaphylaxis Verified 10/19/18 17:35 ROS unobtainable: due to mental status All Systems Review: The remainder of the systems were reviewed and are negative Physical Examination Vital Signs, Last 4 Hours Temp Pulse Resp BP Pulse Ox 10/20/18 08:00 81 20 99/82 92 10/20/18 07:56 98.3 F 10/20/18 07:45 82 10/20/18 07:00 83 19 101/75 92 10/20/18 06:00 90 20 109/59 94 10/20/18 05:00 92 26 104/87 94 Other: Gen.: Vitals noted. No acute distress. Alert, awake and oriented * [address], [address], and time, well developed, well-nourished resting comfortably in bed. Pl [place]. HEENT: oropharynx clear, Normocephalic, atraumatic, MMM Neck: supple, no JVD, no lymphadenopathy, no carotid bruit. Cardiac: RRR, no murmur, +S1/S2, No BLE edema, PMI non-displaced Pulmonary: CTA bilaterally, no wheezes, rales or rhonchi, equal chest expansion, unlabored breathing Abdomen: soft, nontender, BS noted, no guarding, non- distended. No organomegaly, no pulsatile masses, Skin: warm and dry, no visible lesions. Feels warm, clammy, no rashes, no lesions, no erythema MSK: ROM not assessed. no joint swelling noted, gait not assessed while in bed. Non tender calf or clubbing, no cyanosis/clubbing/ or edema Neuro: A&O, moves all extremities, no focal deficits, sensation intact Psych: Appropriate mood and behavior, normal speech, Results 10/20/18 04:35 10/20/18 04:35 Lab Results 10/19/18 10/19/18 10/19/18 17:59 17:59 22:03 WBC 13.8 H Hgb 9.1 L Hct 27.5 L Plt Count 302 Sodium 138 Potassium 3.7 Chloride 104 Carbon Dioxide 23 BUN 26 H Creatinine 0.47 L Glucose 177 H Calcium 8.0 L Troponin I 0.73 H* 0.65 H* 10/20/18 10/20/18 10/20/18 01:52 04:35 04:35 WBC 6.8 D Hgb 8.3 L 8.3 L Hct 26.1 L 26.5 L Plt Count 244 Sodium Potassium Chloride Carbon Dioxide BUN Creatinine Glucose Calcium Troponin I 0.26 H* 10/20/18 04:35 WBC Hgb Hct Plt Count Sodium 141 Potassium 3.5 Chloride 110 H Carbon Dioxide 22 L BUN 18 Creatinine 0.31 L Glucose 88 Calcium 7.9 L Troponin I Consult Discharge Plan - Plan Referrals: Yang Kyle MD [Primary Care Provider] -
[2018-10-20] MEDS ORDERED: Levofloxacin 750 MG/150 ML 750 MG/150 ML BAG IVPB SCH (09:00)
[2018-10-20 10:01] LABS: Estimated Average Glucose 128 mg/dl; Hemoglobin A1C 6.1 %
--- NOTE | 2018-10-20 10:23 | Electrocardiograph Report ---
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
[2018-10-20] MEDS: 0.9 % Sodium Chloride 1,000 ML IVC SCH (17:14)
[2018-10-20] MEDS: Aspirin 81 MG TAB.CHEW PO SCH (20:45)
[2018-10-20] MEDS: Metoprolol XL (24 HR) Succ 25 MG TAB.ER.24H PO SCH (20:48)
[2018-10-21] MEDS: Piperacillin/Tazobactam 3.375 GM in 0.9 % Sodium Chloride Mini Bag 100 ML IVPB SCH ×3 (02:16→16:23)
[2018-10-21] MEDS: 0.9 % Sodium Chloride 1,000 ML IVC SCH (02:19)
[2018-10-21] MEDS: Levalbuterol Neb 1.25 MG/3 ML IH SCH ×4 (03:28→21:39)
[2018-10-21 05:13] LABS: Basophils % 0.5 %; Hematocrit 26.4 % (35.3-44.9); Hemoglobin 8.6 g/dL (11.5-15.4); Immature Granulocytes % 0.3 % (0-4); Lymphocytes # 0.9 K/mcL (0.6-4.6); Lymphocytes % 12.6 %; Mean Corpuscular HGB Conc 32.6 g/dL (31.6-35.5); Mean Corpuscular Hemoglobin 28.4 pg (28.0-33.3); Mean Corpuscular Volume 87.1 fL (83.0-100.0); Monocytes # 0.9 K/mcL (0.0-1.3); Monocytes % 11.6 %; Neutrophils # 5.6 K/mcL (1.6-8.9); Platelet Count 321 K/mcL (140-400); Red Blood Count 3.03 M/mcL (3.82-4.97); Red Cell Distribution Width 14.9 % (11.5-14.5)
[2018-10-21 05:30] LABS: BUN/Creatinine Ratio 24 (6-26); Blood Urea Nitrogen 8 mg/dL (8-23); Calcium 8.6 mg/dL (8.6-10.3); Carbon Dioxide 24 mEq/L (23-29); Chloride 102 mEq/L (98-107); Glucose 85 mg/dL (70-105); Osmolality,Calculated 276 (280-300); Potassium 3.7 mEq/L (3.5-5.1); Sodium 134 mEq/L (136-145); eGFR For Non-African Americans > 60 (> 60)
[2018-10-21] MEDS: Pantoprazole 40 MG VIAL IVP SCH (08:37)
[2018-10-21] MEDS: Insulin LISPRO 300 UNITS/3 ML VIAL SQ SCH ×4 (08:39→22:48)
--- NOTE | 2018-10-21 10:00 | Internal Med Progress Note ---
Hospitalist Progress Note - Encounter Date of Encounter: 10/21/18 Time of Encounter: 09:38 - Subjective Interval History: Patient seen and examined this morning at bedside. No acute overnight events. Patient nonverbal and not able to comprehend any question. - Exam Vitals: Temp Pulse Resp BP Pulse Ox 97.8 F 85 16 126/86 90 10/21/18 07:22 10/21/18 07:22 10/21/18 07:22 10/21/18 07:22 10/21/18 07:22 Exam: General: In no acute distress. Respiratory exam: no accessory muscle use. Diffuse rhonchi bilaterally Cardiovascular exam: RRR, +S1, +S2. no murmur, gallop, rubs. GI/Abdominal exam: Non-tender, Non-distended, soft, no peritoneal signs. Extremities exam: no pedal edema Neurological exam: awake and alert, non verbal, not able to comprehend question. Skin exam: No skin rash noted - Assessment and Plan (1) Sepsis associated hypotension Current Visit: Yes Status: Acute (2) Severe sepsis Current Visit: Yes Status: Acute (3) Pneumonia Current Visit: Yes Status: Acute (4) DVT prophylaxis Current Visit: Yes Status: Acute (5) Anemia Current Visit: Yes Status: Acute (6) Elevated troponin Current Visit: Yes Status: Acute (7) Leukocytosis Current Visit: Yes Status: Acute (8) Alzheimer disease Current Visit: No Status: Chronic (9) Hypothyroidism Current Visit: No Status: Chronic (10) Acute metabolic encephalopathy Current Visit: Yes Status: Acute (11) T2DM (type 2 diabetes mellitus) Current Visit: No Status: Chronic - Summary of Assessment and Plan Summary of Assessment and Plan: Assessment Severe sepsis Multifocal Pneumonia unclear organism Anemia Elevated troponin Alzheimer's dementia- nonverbal Acute metabolic encephalopathy Diabetes Hypothyroidism DVT prophylaxis Plan - Improved after IV fluid resuscitation. BP now stable. TLC removed - c/w empiric vancomycin and Zosyn. Levaquin stopped. blood culture NGTD, urine with no growth. Positive MRSA screen and negative urine antigen. - Hb stable. Anemia likely from iron deficiency based on iron study. Start iron supplement. Follow-up stool occult. trend hb. transfuse to keep hb >8 given. - ECHO with reduced EF of 40-45%. Cardiology recommendation appreciated. ACS cannot be excluded, but possibly type II [place]. given poor overall status conservative strategy recommended. c/w aspirin, statin and metoprolol - Continue home Synthroid, sliding scale insulin and Accu-Cheks. - resume PO meds. Feeding with superevision - Time Spent with Patient Total time spent is greater than 50% in coordination of care (as documented) at patient's floor/unit and/or counseling patient: Internal Medicine: Result - Labs CBC & Chem 7: 10/21/18 04:57 10/21/18 04:57 Labs: Short CBC 10/21/18 Range/Units 04:57 WBC 7.5 (4.3-11.1) K/mcL Hgb 8.6 L (11.5-15.4) g/dL Hct 26.4 L (35.3-44.9) % Plt Count 321 (140-400) K/mcL Neutrophils # 5.6 (1.6-8.9) K/mcL BMP 10/21/18 04:57 Sodium 134 L Potassium 3.7 Chloride 102 Carbon Dioxide 24 BUN 8 Creatinine 0.33 L Glucose 85 Calcium 8.6 Cardiac Enzymes 10/20/18 Range/Units 10:40 Troponin I 0.22 H* (< 0.04) ng/mL Consult Discharge Plan - Plan Referrals: Yang Kyle MD [Primary Care Provider] - (3) Pneumonia Qualifiers: Pneumonia type: due to unspecified organism Laterality: unspecified laterality Lung location: unspecified part of lung Qualified Code(s): J18.9 - Pneumonia, unspecified organism (5) Anemia Qualifiers: Anemia type: unspecified type Qualified Code(s): D64.9 - Anemia, unspecified (7) Leukocytosis Qualifiers: Leukocytosis type: unspecified Qualified Code(s): D72.829 - Elevated white blood cell count, unspecified (8) Alzheimer disease Qualifiers: Alzheimer's disease onset: unspecified onset Dementia behavioral disturbance: with behavioral disturbance Qualified Code(s): G30.9 - Alzheimer's disease, unspecified; F02.81 - Dementia in other diseases classified elsewhere with beha vioral disturbance (9) Hypothyroidism Qualifiers: Hypothyroidism type: acquired Qualified Code(s): E03.9 - Hypothyroidism, unspecified (11) T2DM (type 2 diabetes mellitus) Qualifiers: Diabetes mellitus senior care insulin use: without watermaster use Diabetes mellitus complication status: with hyperglycemia Qualified Code(s): E11.65 - Type 2 diabetes mellitus with hyperglycemia
[2018-10-21] MEDS: Metoprolol XL (24 HR) Succ 25 MG TAB.ER.24H PO SCH (10:21)
[2018-10-21] MEDS: Aspirin 81 MG TAB.CHEW PO SCH (10:21)
--- NOTE | 2018-10-21 11:36 | Cardiology Progress Note ---
Date of Encounter: 10/21/18 Time of Encounter: 11:34 Assessment and Plan (1) Elevated troponin Current Visit: Yes Status: Acute Elevated troponin, decreasing. Mildly reduced LV function noted on echocardiogram, which could be related to sepsis, but ACS cannot be excluded. No acute ECG changes. Given her infectious issues and multiple chronic comorbidities, I would recommend a conservative strategy of medical therapy. Continue aspirin/statin/BB therapy. She does not appear to be a good candidate for cardiac catheterization, which is unlikely to improve her current quality of life. No further inpatient cardiology recommendations. Please call with any questions or concerns. Discussion w patient/family: The assessment and plan as outlined above was discussed with the patient and/or family members who expressed understanding and agreement. All questions were answered. Thank you for involving us in the care of your patient. Please call with any questions. Subjective Principal diagnosis: Sepsis Interval history: Overall, condition is largely unchanged. At baseline, she seems to be nonverbal. No obvious change in cardiac status. Serial troponin measurements decreasing. Anemia remains, but appears stable. Currently being treated for multifocal pneumonia and presumed sepsis. Objective Vital Signs, Last 4 Hours Temp Pulse Resp BP Pulse Ox 10/21/18 11:05 99.0 F 92 18 115/70 91 10/21/18 09:59 18 90 General: No Apparent Distress, Other (Chronically ill-appearing.) HEENT: Atraumatic, Normocephaly, Mucus Membranes Moist Neck: No JVD, Normal carotid pulses Cardiac: Other (Distant, but appears regular. No obvious murmurs.) Lungs: Other (Poor effort, shallow) Neuro: Other (Nonverbal, contractured) Abdomen: Soft, Non-Tender Skin: No rashes noted on visualized skin Musculoskeletal: No Chest Wall Tenderness Extremities: No Clubbing, No Cyanosis, No Edema Results 10/21/18 04:57 10/21/18 04:57 Lab Results 10/20/18 10/21/18 10/21/18 10:40 04:57 04:57 WBC 7.5 Hgb 8.6 L Hct 26.4 L Plt Count 321 Sodium 134 L Potassium 3.7 Chloride 102 Carbon Dioxide 24 BUN 8 Creatinine 0.33 L Glucose 85 Calcium 8.6 Troponin I 0.22 H* - Imaging and Cardiology Echo: report reviewed Consult Discharge Plan - Plan Referrals: Yang Kyle MD [Primary Care Provider] -
[2018-10-21] MEDS: Divalproex Sodium 125 MG CAPSULE PO SCH ×2 (16:23→22:48)
[2018-10-21] MEDS: BUSPIRONE HCL 10 MG TABLET PO SCH (22:48)
[2018-10-22] MEDS ORDERED: Acetaminophen 325 MG TABLET PO PRN (00:59)
[2018-10-22] MEDS: Piperacillin/Tazobactam 3.375 GM in 0.9 % Sodium Chloride Mini Bag 100 ML IVPB SCH ×3 (02:09→17:36)
[2018-10-22] MEDS: Levalbuterol Neb 1.25 MG/3 ML IH SCH ×4 (03:34→21:47)
[2018-10-22 07:09] LABS: Basophils % 0.5 %; Eosinophils % 0.1 %; Hematocrit 26.3 % (35.3-44.9); Hemoglobin 8.7 g/dL (11.5-15.4); Immature Granulocytes % 0.5 % (0-4); Lymphocytes % 11.8 %; Mean Corpuscular HGB Conc 33.1 g/dL (31.6-35.5); Mean Corpuscular Hemoglobin 28.7 pg (28.0-33.3); Mean Corpuscular Volume 86.8 fL (83.0-100.0); Mean Platelet Volume 11.2 fL (9.4-12.4); Monocytes # 1.2 K/mcL (0.0-1.3); Neutrophils # 6.1 K/mcL (1.6-8.9); Platelet Count 317 K/mcL (140-400); Red Blood Count 3.03 M/mcL (3.82-4.97); Segmented Neutrophils % 73.1 %
[2018-10-22 07:25] LABS: BUN/Creatinine Ratio 25 (6-26); Blood Urea Nitrogen 13 mg/dL (8-23); Calcium 8.5 mg/dL (8.6-10.3); Carbon Dioxide 25 mEq/L (23-29); Chloride 105 mEq/L (98-107); Glucose 102 mg/dL (70-105); Osmolality,Calculated 288 (280-300); Potassium 2.8 mEq/L (3.5-5.1); Sodium 139 mEq/L (136-145); eGFR For Non-African Americans > 60 (> 60)
--- NOTE | 2018-10-22 08:38 | Internal Med Progress Note ---
Hospitalist Progress Note - Encounter Date of Encounter: 10/22/18 Time of Encounter: 08:31 - Exam Vitals: Temp Pulse Resp BP Pulse Ox 98.3 F 74 16 113/72 93 10/22/18 07:18 10/22/18 07:18 10/22/18 07:18 10/22/18 07:18 10/22/18 07:18 Exam: General: In no acute distress. Respiratory exam: no accessory muscle use. Diffuse rhonchi bilaterally Cardiovascular exam: RRR, +S1, +S2. no murmur, gallop, rubs. GI/Abdominal exam: Non-tender, Non-distended, soft, no peritoneal signs. Extremities exam: no pedal edema Neurological exam: awake and alert, non verbal, not able to comprehend question. Skin exam: No skin rash noted - Assessment and Plan (1) Sepsis associated hypotension Current Visit: Yes Status: Acute (2) Severe sepsis Current Visit: Yes Status: Acute (3) Pneumonia Current Visit: Yes Status: Acute (4) DVT prophylaxis Current Visit: Yes Status: Acute (5) Anemia Current Visit: Yes Status: Acute (6) Elevated troponin Current Visit: Yes Status: Acute (7) Leukocytosis Current Visit: Yes Status: Acute (8) Alzheimer disease Current Visit: No Status: Chronic (9) Hypothyroidism Current Visit: No Status: Chronic (10) Acute metabolic encephalopathy Current Visit: Yes Status: Acute (11) T2DM (type 2 diabetes mellitus) Current Visit: No Status: Chronic - Summary of Assessment and Plan Summary of Assessment and Plan: Assessment Severe sepsis Multifocal Pneumonia unclear organism Goals of care discussion Elevated troponin hypokalemia Anemia Alzheimer's dementia- nonverbal Acute metabolic encephalopathy Diabetes Hypothyroidism DVT prophylaxis Plan - hemodynamics improved. sepsis resolved - c/w empiric vancomycin and Zosyn. Levaquin stopped. blood culture NGTD, urine with no growth. Positive MRSA screen and negative urine antigen. - Hb stable. likely from iron deficiency. on iron supplement. Follow-up stool occult. trend hb. No active bleeding - ECHO with reduced EF of 40-45%. Cardiology recommendation appreciated. ACS cannot be excluded, but possibly type II PR. given poor overall status conservative strategy recommended. c/w aspirin, statin and metoprolol. Cardiology signed off. - Continue home Synthroid, sliding scale insulin and Accu-Cheks. - supplement potassium IV. - Patient with recurrent aspiration on attepmts at feeding. Keep NPO for now. - Discussed care with ABEL Buck. See wishes patient to have feeding tube and to be resuscitated if needed. Patient has been DNR -[facility] per paperwork. Unlikely patient would have good quality and meaningful life with invasive interventions. We will consult palliative care to discuss goals of care and education for family. - Time Spent with Patient Total time spent is greater than 50% in coordination of care (as documented) at patient's floor/unit and/or counseling patient: Internal Medicine: Result - Labs CBC & Chem 7: 10/22/18 06:37 10/22/18 06:37 Labs: Short CBC 10/22/18 Range/Units 06:37 WBC 8.3 (4.3-11.1) K/mcL Hgb 8.7 L (11.5-15.4) g/dL Hct 26.3 L (35.3-44.9) % Plt Count 317 (140-400) K/mcL Neutrophils # 6.1 (1.6-8.9) K/mcL BMP 10/22/18 06:37 Sodium 139 Potassium 2.8 L Chloride 105 Carbon Dioxide 25 BUN 13 Creatinine 0.51 L Glucose 102 Calcium 8.5 L Consult Discharge Plan - Plan Referrals: Yang Kyle MD [Primary Care Provider] - (3) Pneumonia Qualifiers: Pneumonia type: due to unspecified organism Laterality: unspecified lateralit y Lung location: unspecified part of lung Qualified Code(s): J18.9 - Pneumonia, unspecified organism (5) Anemia Qualifiers: Anemia type: unspecified type Qualified Code(s): D64.9 - Anemia, unspecified (7) Leukocytosis Qualifiers: Leukocytosis type: unspecified Qualified Code(s): D72.829 - Elevated white blood cell count, unspecified (8) Alzheimer disease Qualifiers: Alzheimer's disease onset: unspecified onset Dementia behavioral disturbance: with behavioral disturbance Qualified Code(s): G30.9 - Alzheimer's disease, unspecified; F02.81 - Dementia in other diseases classified elsewhere with behavioral disturbance (9) Hypothyroidism Qualifiers: Hypothyroidism type: acquired Qualified Code(s): E03.9 - Hypothyroidism, unspecified (11) T2DM (type 2 diabetes mellitus) Qualifiers: Diabetes mellitus longterm insulin use: without supervisor intermediates use Diabetes mellitus complication status: with hyperglycemia Qualified Code(s): E11.65 - Type 2 diabetes mellitus with hyperglycemia
[2018-10-22] MEDS: Aspirin 81 MG TAB.CHEW PO SCH (08:45)
[2018-10-22] MEDS: Insulin LISPRO 300 UNITS/3 ML VIAL SQ SCH ×4 (08:45→20:30)
[2018-10-22] MEDS: BUSPIRONE HCL 10 MG TABLET PO SCH ×2 (08:45→20:30)
[2018-10-22] MEDS: Divalproex Sodium 125 MG CAPSULE PO SCH ×3 (08:46→20:30)
[2018-10-22] MEDS: Gabapentin 300 MG CAPSULE PO SCH (11:30)
[2018-10-22] MEDS: Metoprolol XL (24 HR) Succ 25 MG TAB.ER.24H PO SCH (13:09)
[2018-10-22] MEDS: FLUoxetine 20 MG CAPSULE PO SCH (13:09)
--- NOTE | 2018-10-22 15:20 | Palliative - Consult Note ---
Date of Encounter: 10/22/18 Time of Encounter: 14:15 - Assessment and Plan (1) Counseling regarding advanced care planning and goals of care Current Visit: Yes Status: Acute Assessment and plan: Conducted 35 minute bedside meeting with daughters Cielo and Mae. Cielo states that she is POA but no forms have been presented and she states that Mayr is 2nd agent. I requested forms be brought in. Discussed POC and current condition. Educated on resolution of sepsis and advanced stages of dementia/alzheimers. Patient has declined over past couple years and is now predominately confined to bed. States that normally patient is screaming and cursing at ECF. Reviewed ECF forms and discussed DNR form as completed in 07/2017. Stating that patient is DNRCC - A. Reviewed form with Cielo and showed her her signature on the form from [facility]. Cielo appeared to have no recollection of signing DNR form at [facility]. Daughter Mary stated that she thought patient was FULL CODE. I confirmed that patient is currently a DNRCC - A. Cielo states that she will need to discuss Code status further with other siblings and leave the status as a DNRCC - A for now. I educated on DNR statuses and explained State DNR definitions. I further discussed that patient overall condition is fragile and that the patient would not likely survive a medical code blue given her overall condition. Daughters verbalized understanding and agree. Explained that patient was unable to participate in swallow evaluation d/t overall condition. Discussed pros/cons of PEG tube. Discussed potential for aspiration, infection, dumping syndrome and that patient would likely pull the tube out. Daughters requested time to discuss. We discussed GOC and educated them on the advanced symptoms of Alzheimer's disease. Discussed that patients prognosis has advanced and that no improvement with PEG would likely occur. Discussed possible transition to comfort care as option if they agree to no PEG. I further explained that patient is not a good candidate for PEG given her bedridden state and inability to comply with maintaining HOB up. They desire sometime to further discuss these issues. Follow-up meeting scheduled for tomorrow 10/23/18 at 10am. In the meantime, ray glass will consult with additional siblings and discuss goals, look for copies of advanced directives and clarify DNR status. Patient remains DNRCC - A. (2) Palliative care encounter Current Visit: Yes Status: Acute (3) Pneumonia Current Visit: Yes Status: Acute Assessment and plan: Patient receiving management per primary care team. Qualifiers: Pneumonia type: due to unspecified organism Laterality: unspecified laterality Lung location: unspecified part of lung Qualified Code(s): J18.9 - Pneumonia, unspecified organism (4) Alzheimer disease Current Visit: No Status: Chronic Qualifiers: Alzheimer's disease onset: unspecified onset Dementia behavioral disturbance: with behavioral disturbance Qualified Code(s): G30.9 - Alzheimer's disease, unspecified; F02.81 - Dementia in other diseases classified elsewhere with behavioral disturbance Palliative-CN HPI - Data of Consult Patient: new to practice Consult date: 10/22/18 Requesting Physician: Dioni Mercedes MD Primary Care Provider: Yang Kyle MD - Consult Narrative Palliative Care/Comfort Measures: Palliative care Reason for consult: GOC discussion and Code Status clarification History of present illness: Ms. Douglass is a 68 year old female admitted from [facility] with pneumonia/sepsis. Patient with history of dementia/alzheimers, CAD. Patient is debilitated with upper and lower extremity contracture's. Patient is at baseline bedridden and nonverbal. Patients daughter's Cielo and Mary are at bedside during the consult. They report that the patient has suffered from dementia for years and at one time at a PEG tube in place. CC: Dioni Mercedes MD - Time Spent with Patient Time: Total time spent is greater than 50% in coordination of care (as documented) at patient's floor/unit and/or counseling patient: Time with patient: 45 minutes Past Med Surg Social Fam HX - Past Medical History Medical history: GERD, hyperlipidemia, hypertension, myocardial infarction, seizures, thyroid disease Additional medical history: Alzheimers. CAD Psychiatric history: anxiety, bipolar, schizophrenia - Past Surgical History Additional surgical history: unable to do history w/pt due to incomprehensable speech - Social History Smoking Status: Former smoker Smokeless Tobacco Status: No Alcohol use: none Drug use: none Medications and Allergies Acetaminophen [Non-Aspirin] 650 mg PO Q4H PRN 10/19/18 [History] Ammonium Lactate 1 appl TP BID 10/19/18 [History] Aspirin Enteric Coated [Aspirin EC] 81 mg PO DAILY 10/19/18 [History] Bisacodyl [Gentle Laxative] 10 mg RC DAILY PRN 10/19/18 [History] Buspirone HCl [Buspar] 10 mg PO BID 10/19/18 [History] Divalproex Sodium [Depakote Sprinkle] 250 mg PO TID 10/19/18 [History] FLUoxetine HCl [Fluoxetine HCl] 40 mg PO DAILY 10/19/18 [History] Gabapentin [Neurontin] 300 mg PO DAILY 10/19/18 [History] Hyoscyamine SL [Levsin SL] 0.125 mg SL BID 10/19/18 [History] Levothyroxine Sodium 112 mcg PO 0630 10/19/18 [History] Magnesium Hydroxide [Milk of Magnesia] 30 ml PO Q24H PRN 10/19/18 [History] Seamus/Poly/DEX Opth OINT [Maxitrol OPTH Oint] 1 appl BOTH EYES HS 10/19/18 [History] Nystatin POWDER [Nystop] 1 appl TP TID 10/19/18 [History] Quetiapine Fumarate [Seroquel] 25 mg PO BID 10/19/18 [History] Quetiapine Fumarate [Seroquel] 100 mg PO BID 10/19/18 [History] Sennosides/Docusate Sodium [Colace 2-in-1 Tablet] 1 each PO DAILY 10/19/18 [History] Vitamin E 400 unit PO DAILY 10/19/18 [History] Allergy/AdvReac Type Severity Reaction Status Date / Time [place] Allergy Anaphylaxis Verified 10/19/18 17:35 ROS unobtainable: due to mental status (Patient with dementia. ) - Constitutional Constitutional ROS PAL: fatigue, lethargy - Cardiovascular Cardiovascular ROS: dyspnea on exertion - Respiratory Respiratory: dyspnea - Musculoskeletal Musculoskeletal ROS IM: muscle weakness - Neurological Neurological ROS: weakness Palliative Care-Exam - Constitutional Vitals: Temp Pulse Resp BP Pulse Ox 98.0 F 78 15 124/79 93 10/22/18 11:22 10/22/18 11:22 10/22/18 11:22 10/22/18 11:22 10/22/18 11:22 General appearance: Present: no acute distress - Head Head Exam: Present: atraumatic, normal inspection, normocephalic - Eye Eye exam: Present: PERRL - ENT ENT exam: Present: mucous membranes dry - Neck Neck exam: Present: full ROM - Respiratory Respiratory exam: Present: decreased breath sounds - Expanded Respiratory Exam Location: decreased breath sounds: Left, Right, Lower - Cardiovascular Cardiovascular exam: Present: RRR, +S1, +S2 - Expanded Cardiovascular Exam Peripheral pulses: 1+: Femoral (L) PM, Femoral (R) PM, Posterior Tibialis (L), Posterior Tibialis (R), Dorsalis Pedis (L) PM, Dorsalis Pedis (R) PM, 2+: Carotid (L) PM, Carotid (R) PM, Radial (L), Radial (R) - GI/Abdominal Exam GI/Abdominal exam: Present: normal bowel sounds, soft - Rectal Rectal exam: Present: deferred - Back Exam Back exam: Present: tenderness - Neurological Exam Neurological exam: Present: altered - Expanded Neurological Exam Coma Scale Eye Opening: To Voice Coma Scale Motor Response: Abnormal Flexion Coma Scale Verbal Response: Incomprehensible Coma Scale Total: 8 - Skin Skin exam: Present: pallor, warm Internal Medicine - CN: Reslt - Labs CBC & Chem 7: 10/22/18 06:37 10/22/18 06:37 Labs: Short CBC 10/22/18 Range/Units 06:37 WBC 8.3 (4.3-11.1) K/mcL Hgb 8.7 L (11.5-15.4) g/dL Hct 26.3 L (35.3-44.9) % Plt Count 317 (140-400) K/mcL Neutrophils # 6.1 (1.6-8.9) K/mcL BMP 10/22/18 06:37 Sodium 139 Potassium 2.8 L Chloride 105 Carbon Dioxide 25 BUN 13 Creatinine 0.51 L Glucose 102 Calcium 8.5 L Consult Discharge Plan - Plan Referrals: Yang Kyle MD [Primary Care Provider] - Palliative Quality Palliative Quality: Screen for Code Status: Yes, Screen for Goals of Care: Yes, Screen for Pain: Yes, If Pain Regimen Started, Initiate Bowel Regimen: Yes, Screen for Nausea/Vomitting: Yes Code Status: 10/19/18 22:06 Resuscitation Status: Active [RES] Routine Comment: Resuscitation Status: DNR-Comfort Care-Arrest
[2018-10-22] MEDS ORDERED: Acetaminophen 650 MG RECTAL SUPP RC PRN (19:57)
[2018-10-22] MEDS ORDERED: Piperacillin/Tazobactam 3.375 GM VIAL ONE (23:38)
[2018-10-23] MEDS: Piperacillin/Tazobactam 3.375 GM in 0.9 % Sodium Chloride Mini Bag 100 ML IVPB SCH ×4 (00:02→23:38)
[2018-10-23] MEDS: Levalbuterol Neb 1.25 MG/3 ML IH SCH ×4 (04:05→22:27)
[2018-10-23 06:37] LABS: BUN/Creatinine Ratio 19 (6-26); Blood Urea Nitrogen 9 mg/dL (8-23); Calcium 8.3 mg/dL (8.6-10.3); Carbon Dioxide 26 mEq/L (23-29); Chloride 104 mEq/L (98-107); Glucose 116 mg/dL (70-105); Osmolality,Calculated 290 (280-300); Potassium 2.5 mEq/L (3.5-5.1); Sodium 140 mEq/L (136-145); eGFR For Non-African Americans > 60 (> 60)
[2018-10-23] MEDS: Insulin LISPRO 300 UNITS/3 ML VIAL SQ SCH ×4 (09:26→20:49)
[2018-10-23] MEDS: Aspirin 81 MG TAB.CHEW PO SCH (09:27)
[2018-10-23] MEDS: Gabapentin 300 MG CAPSULE PO SCH (09:27)
[2018-10-23] MEDS: FLUoxetine 20 MG CAPSULE PO SCH (09:27)
[2018-10-23] MEDS: BUSPIRONE HCL 10 MG TABLET PO SCH ×2 (09:27→20:49)
[2018-10-23] MEDS: Divalproex Sodium 125 MG CAPSULE PO SCH ×3 (09:27→20:49)
[2018-10-23] MEDS: Metoprolol XL (24 HR) Succ 25 MG TAB.ER.24H PO SCH (09:27)
--- NOTE | 2018-10-23 11:27 | Palliative Progress Note ---
<Rigoberto Vargas - Last Filed: 10/23/18 16:06> Date of Encounter: 10/23/18 Time of Encounter: 11:27 - Assessment and plan (1) Goals of care, counseling/discussion Current Visit: Yes Status: Acute Assessment and plan: Had a family meeting with pt's daughters Mary and Cielo. The older daughter Cielo is the self appointed POA, but is not able to provide any paperwork. Mary is agreeable to Cielo being the POA, however there are 3 brothers who have not been contacted at this time. Obtained information regarding these brothers and will reach out to them or attempt to contact them regarding the POA. Discussed the pt's current clinical status with probable aspiration pneumonia, sepsis, and end stage dementia. Cielo is understanding of overall prognosis. Discussed that patient had feeding tube previously, but pulled it out. Discussed the risks and benefits of the procedure, but recommended that a PEG tube would not be beneficial at this time. Cielo is agreeable to this plan. Reports she wished to let the pt eat some food including ice cream and potatoes with gravy. She also expressed concerns that when the patient was on hospice previously, the patient was given Morphine without notifying the family. Pt resides in [place], and previously received hospice services from [facility]. Cielo expressed th ey would like to try another hospice service if possible. 16:00 - Dr Lima spoke on the phone with pt's sons Ha and George who both stated they defer medicial decision making for the pt to their sister Cielo. (2) Palliative care encounter Current Visit: Yes Status: Acute (3) Pneumonia Current Visit: Yes Status: Acute Assessment and plan: Currently receiving Vanc and Zosyn Management per primary Qualifiers: Pneumonia type: due to unspecified organism Laterality: unspecified laterality Lung location: unspecified part of lung Qualified Code(s): J18.9 - Pneumonia, unspecified organism (4) Alzheimer disease Current Visit: No Status: Chronic Qualifiers: Alzheimer's disease onset: unspecified onset Dementia behavioral disturbance: with behavioral disturbance Qualified Code(s): G30.9 - Alzheimer's disease, unspecified; F02.81 - Dementia in other diseases classified elsewhere with behavioral disturbance - Time Spent With Patient Total time spent is greater than 50% in coordination of care (as documented) at patient's floor/unit and/or counseling patient: - Subjective Interval history: Pt seen and examined at bedside. She is resting comfortably in no acute distress. She is chewing on her fingers and will yell if anyone tries to move her arms. - Constitutional Vitals: Abnormal lab results WBC 13.8 K/mcL (4.3-11.1) H 10/19/18 17:59 RBC 3.03 M/mcL (3.82-4.97) L 10/22/18 06:37 Hgb 8.7 g/dL (11.5-15.4) L 10/22/18 06:37 Hct 26.3 % (35.3-44.9) L 10/22/18 06:37 MCHC 31.3 g/dL (31.6-35.5) L 10/20/18 04:35 RDW 15.0 % (11.5-14.5) H 10/22/18 06:37 12.0 K/mcL (1.6-8.9) H 10/19/18 17:59 Sodium 134 mEq/L (136-145) L 10/21/18 04:57 Potassium 2.5 mEq/L (3.5-5.1) L* 10/23/18 05:59 Chloride 110 mEq/L (98-107) H 10/20/18 04:35 Carbon Dioxide 22 mEq/L (23-29) L 10/20/18 04:35 BUN 26 mg/dL (8-23) H 10/19/18 17:59 0.48 mg/dL (0.60-1.20) L 10/23/18 05:59 58 (6-26) H 10/20/18 04:35 Glucose 116 mg/dL (70-105) H 10/23/18 05:59 POC Glucose 102 mg/dL (70-99) H 10/22/18 11:21 6.1 % (-5.6) H 10/20/18 04:35 276 (280-300) L 10/21/18 04:57 Lactic Acid 2.8 mmol/L (0.5-2.2) H 10/19/18 17:59 Calcium 8.3 mg/dL (8.6-10.3) L 10/23/18 05:59 Iron 10 mcg/dL (50-170) L 10/19/18 22:51 % Saturation 3 % (15-50) L 10/19/18 22:51 0.22 ng/mL (< 0.04) H* 10/20/18 10:40 Cloudy (Clear) A 10/20/18 04:00 Ur Specific [place] > 1.030 (1.010-1.025) H 10/20/18 04:00 30 mg/dL (Neg-Trace) H 10/20/18 04:00 Trace (Negative) H 10/20/18 04:00 Ur Leukocyte Esterase Moderate (Negative) H 10/20/18 04:00 TNTC per hpf (0-3) H 10/20/18 04:00 Ur Squamous Epith Cells Many per lpf (None-Few) H 10/20/18 04:00 Hyaline Casts Moderate per lpf (None-Few) H 10/20/18 04:00 Ur Culture Indicated? YES (NO) A 10/20/18 04:00 Positive (Negative) A 10/20/18 14:00 Vancomycin Trough 11 mcg/mL (5-10) H 10/22/18 16:42 General appearance: Present: no acute distress - Head Head exam: Present: atraumatic, normal inspection, normocephalic - Eye Eye exam: Present: normal appearance, PERRL - Respiratory Respiratory exam: Present: decreased breath sounds. Absent: respiratory distress, rhonchi, wheezes - Extremities Exam Extremities exam: Present: normal inspection. Absent: pedal edema - Neurological Exam Neurological exam: Present: alert, altered - Skin Skin exam: Present: dry, intact, warm Palliative Quality Palliative Quality: Screen for Code Status: Yes, Screen for Goals of Care: Yes, Screen for Pain: Yes, If Pain Regimen Started, Initiate Bowel Regimen: Yes, Screen for Nausea/Vomitting: Yes Code Status: 10/19/18 22:06 Resuscitation Status: Active [RES] Routine Comment: Resuscitation Status: DNR-Comfort Care-Arrest - Labs CBC & Chem 7: 10/22/18 06:37 10/23/18 13:47 Labs: Laboratory Results - last 24 hr 10/21/18 10/21/18 10/21/18 16:11 20:51 23:58 Sodium Potassium Chloride Carbon Dioxide BUN Creatinine Est GFR ( Amer) Est GFR (Non-Af Amer) BUN/Creatinine Ratio Glucose POC Glucose 99 130 H 108 H Calculated Osmolality Calcium Vancomycin Trough 10/22/18 10/22/18 10/22/18 05:41 11:21 15:49 Sodium Potassium Chloride Carbon Dioxide BUN Creatinine Est GFR ( Amer) Est GFR (Non-Af Amer) BUN/Creatinine Ratio Glucose POC Glucose 107 H 102 H 93 Calculated Osmolality Calcium Vancomycin Trough 10/22/18 10/23/18 16:42 05:59 Sodium 140 Potassium 2.5 L* Chloride 104 Carbon Dioxide 26 BUN 9 Creatinine 0.48 L Est GFR ( Amer) > 60 Est GFR (Non-Af Amer) > 60 BUN/Creatinine Ratio 19 Glucose 116 H POC Glucose Calculated Osmolality 290 Calcium 8.3 L Vancomycin Trough 11 H Palliative Scale - Palliative Performance Scale How ambulatory is this patient?: Totally bed bound What is patient's level of activity and evidence of disease?: Unable to do any activity, Extensive disease How much self-care assistance does patient require?: Total care How much oral intake does the patient have?: Normal or reduced What is this patient's level of consciousness?: Full or confusion Palliative Performance Score: 40 % Consult Discharge Plan - Plan Referrals: Yang Kyle MD [Primary Care Provider] - <Katharine Lima - Last Filed: 10/23/18 16:53> Date of Encounter: 10/23/18 - Time Spent With Patient Total time spent is greater than 50% in coordination of care (as documented) at patient's floor/unit and/or counseling patient: - Constitutional Vitals: Abnormal lab results WBC 13.8 K/mcL (4.3-11.1) H 10/19/18 17:59 RBC 3.03 M/mcL (3.82-4.97) L 10/22/18 06:37 Hgb 8.7 g/dL (11.5-15.4) L 10/22/18 06:37 Hct 26.3 % (35.3-44.9) L 10/22/18 06:37 MCHC 31.3 g/dL (31.6-35.5) L 10/20/18 04:35 RDW 15.0 % (11.5-14.5) H 10/22/18 06:37 12.0 K/mcL (1.6-8.9) H 10/19/18 17:59 Sodium 134 mEq/L (136-145) L 10/21/18 04:57 Potassium 2.9 mEq/L (3.5-5.1) L 10/23/18 13:47 Chloride 110 mEq/L (98-107) H 10/20/18 04:35 Carbon Dioxide 22 mEq/L (23-29) L 10/20/18 04:35 BUN 26 mg/dL (8-23) H 10/19/18 17:59 0.48 mg/dL (0.60-1.20) L 10/23/18 05:59 58 (6-26) H 10/20/18 04:35 Glucose 116 mg/dL (70-105) H 10/23/18 05:59 POC Glucose 119 mg/dL (70-99) H 10/23/18 11:04 6.1 % (-5.6) H 10/20/18 04:35 276 (280-300) L 10/21/18 04:57 Lactic Acid 2.8 mmol/L (0.5-2.2) H 10/19/18 17:59 Calcium 8.3 mg/dL (8.6-10.3) L 10/23/18 05:59 Iron 10 mcg/dL (50-170) L 10/19/18 22:51 % Saturation 3 % (15-50) L 10/19/18 22:51 0.22 ng/mL (< 0.04) H* 10/20/18 10:40 Cloudy (Clear) A 10/20/18 04:00 Ur Specific [place] > 1.030 (1.010-1.025) H 10/20/18 04:00 30 mg/dL (Neg-Trace) H 10/20/18 04:00 Trace (Negative) H 10/20/18 04:00 Ur Leukocyte Esterase Moderate (Negative) H 10/20/18 04:00 TNTC per hpf (0-3) H 10/20/18 04:00 Ur Squamous Epith Cells Many per lpf (None-Few) H 10/20/18 04:00 Hyaline Casts Moderate per lpf (None-Few) H 10/20/18 04:00 Ur Culture Indicated? YES (NO) A 10/20/18 04:00 Positive (Negative) A 10/20/18 14:00 Vancomycin Trough 11 mcg/mL (5-10) H 10/22/18 16:42 - Attending Attestation I performed a history and physical examination of the patient and discussed his management with the resident. I reviewed the residents note and agree with the documented findings and plan of care, adding as follow: 10:30-11:10: 40 minutes family meeting with pt's daughters Mary and Cielo along with resident Dr. Vargas and [employer] Perez. The older daughter Cielo claims to be the appointed POA, but is not able to provide any paperwork. Patient has 5 children, 2 girls and 5 boys. Explained that in absence of paperwork, all children are equal and decision must be taken by the majority of the 5, unless they agree to appoint Cielo as primary decision maker. Mary is agreeable to Cielo being the POA. I as given contact numbers for George Benites and Ha Benites. Son Ricki Douglass Jr. is MRDD and family have lost trace of him, despite efforts. Chaplain Perez offered to inquire on resource to help find Ricki. Discussed current medical condition, medical history of dementia and treatment options, and prognosis. Revisited pros and cons of feeding tubes and other ag gressive measures. Cielo have had sometime to reflect after yesterdays conversation with LILI Lainez. Family decided against PEG, and signed a dysphagia waver. Patient was on hospice some time ago after she pulled out her feeding tube, but the family was not pleased with the experience. Explained the philosophy of hospice, and the goal of improving quality of life and not quantity. Cielo agreeable. Hospice liason Dominga was contacted and will talk to family. Plan is to call siblings and confirm that Cielo can make decisions, then will make referral to hospice for admissin once patient returns to SNF. 16:00 - Spoke on the phone with pt's sons Ha([phone]) and George ([phone]) who both stated they defer medical decision making for the pt to their sister Cielo. [facility] called for referral. Palliative Quality Code Status: 10/19/18 22:06 Resuscitation Status: Active [RES] Routine Comment: Resuscitation Status: DNR-Comfort Care-Arrest - Labs CBC & Chem 7: 10/22/18 06:37 10/23/18 13:47 Labs: Laboratory Results - last 24 hr 10/22/18 10/22/18 10/22/18 05:41 15:49 16:42 Sodium Potassium Chloride Carbon Dioxide BUN Creatinine Est GFR ( Amer) Est GFR (Non-Af Amer) BUN/Creatinine Ratio Glucose POC Glucose 107 H 93 Calculated Osmolality Calcium Vancomycin Trough 11 H 10/23/18 10/23/18 10/23/18 00:06 05:35 05:59 Sodium 140 Potassium 2.5 L* Chloride 104 Carbon Dioxide 26 BUN 9 Creatinine 0.48 L Est GFR ( Amer) > 60 Est GFR (Non-Af Amer) > 60 BUN/Creatinine Ratio 19 Glucose 116 H POC Glucose 99 101 H Calculated Osmolality 290 Calcium 8.3 L Vancomycin Trough 10/23/18 10/23/18 11:04 13:47 Sodium Potassium 2.9 L Chloride Carbon Dioxide BUN Creatinine Est GFR ( Amer) Est GFR (Non-Af Amer) BUN/Creatinine Ratio Glucose POC Glucose 119 H Calculated Osmolality Calcium Vancomycin Trough
--- NOTE | 2018-10-23 13:37 | Internal Med Progress Note ---
Hospitalist Progress Note - Encounter Date of Encounter: 10/23/18 Time of Encounter: 11:37 - Subjective Interval History: Since and examined this morning at bedside. No acute overnight events. Patient alert but nonverbal not opposed offer any complaints. Monitor medically stable. Afebrile. - Exam Vitals: Temp Pulse Resp BP Pulse Ox 97.9 F 87 16 132/71 92 10/23/18 11:16 10/23/18 11:16 10/23/18 11:16 10/23/18 11:16 10/23/18 11:16 Exam: General: In no acute distress. Respiratory exam: no accessory muscle use. Diffuse rhonchi bilaterally Cardiovascular exam: RRR, +S1, +S2. no murmur, gallop, rubs. GI/Abdominal exam: Non-distended, soft, no peritoneal signs. Extremities exam: no pedal edema Neurological exam: awake and alert, non verbal, not able to converse Skin exam: No skin rash noted - Assessment and Plan (1) Pneumonia Current Visit: Yes Status: Acute (2) Alzheimer disease Current Visit: No Status: Chronic (3) Palliative care encounter Current Visit: Yes Status: Acute (4) Goals of care, counseling/discussion Current Visit: Yes Status: Acute - Summary of Assessment and Plan Summary of Assessment and Plan: Assessment Severe sepsis Multifocal Pneumonia unclear organism- likely aspiration Goals of care discussion Elevated troponin severe dementia hypokalemia Anemia Alzheimer's dementia- nonverbal Acute metabolic encephalopathy Diabetes Hypothyroidism DVT prophylaxis Plan - hemodynamics improved. sepsis resolved - c/w Zosyn to finish 5 day course. Likely aspiration pneumonia. stop vancomycin. Levaquin stopped. blood culture NGTD, urine with no growth. Positive MRSA screen and negative urine antigen. - Hb stable. likely from iron deficiency. on iron supplement. trend hb. No active bleeding - ECHO with reduced EF of 40-45%. Cardiology recommendation appreciated. ACS cannot be excluded, but possibly type II ID. given poor overall status conservative strategy recommended. c/w aspirin, statin and metoprolol. Cardiology signed off. - Continue home Synthroid, sliding scale insulin and Accu-Cheks. - supplement potassium. - Patient with recurrent aspiration. speech recommended NPO but familiy ok to feed with waiver for possible aspiration and keeping patient DNR-CCA - Palliative following for goals of care. Appreciate the recommendation. Family leading towards hospice. Will likely DC tommorrow to ECF with hospice.. - Time Spent with Patient Total time spent is greater than 50% in coordination of care (as documented) at patient's floor/unit and/or counseling patient: Internal Medicine: Result - Labs CBC & Chem 7: 10/22/18 06:37 10/23/18 13:47 Labs: BMP 10/23/18 05:59 Sodium 140 Potassium 2.5 L* Chloride 104 Carbon Dioxide 26 BUN 9 Creatinine 0.48 L Glucose 116 H Calcium 8.3 L Consult Discharge Plan - Plan Referrals: Yang Kyle MD [Primary Care Provider] - ___ (1) Pneumonia Qualifiers: Pneumonia type: due to unspecified organism Laterality: unspecified laterality Lung location: unspecified part of lung Qualified Code(s): J18.9 - Pneumonia, unspecified organism (2) Alzheimer disease Qualifiers: Alzheimer's disease onset: unspecified onset Dementia behavioral disturbance: with behavioral disturbance Qualified Code(s): G30.9 - Alzheimer's disease, u nspecified; F02.81 - Dementia in other diseases classified elsewhere with behavioral disturbance
[2018-10-23] MEDS: Potassium Chloride Elixir 20 MEQ/15 ML UDC PO SCH ×2 (16:23→18:25)
[2018-10-23] MEDS ORDERED: Aminoglycoside Consult 1 EACH MC ONE (18:01)
[2018-10-24] MEDS: Levalbuterol Neb 1.25 MG/3 ML IH SCH ×3 (04:02→16:38)
[2018-10-24] MEDS: Insulin LISPRO 300 UNITS/3 ML VIAL SQ SCH ×3 (08:05→17:06)
[2018-10-24] MEDS: Aspirin 81 MG TAB.CHEW PO SCH (08:11)
[2018-10-24] MEDS: Metoprolol XL (24 HR) Succ 25 MG TAB.ER.24H PO SCH (08:11)
[2018-10-24] MEDS: Gabapentin 300 MG CAPSULE PO SCH (08:11)
[2018-10-24] MEDS: Divalproex Sodium 125 MG CAPSULE PO SCH ×2 (08:12→16:03)
[2018-10-24] MEDS: FLUoxetine 20 MG CAPSULE PO SCH (08:12)
[2018-10-24] MEDS: BUSPIRONE HCL 10 MG TABLET PO SCH (08:12)
--- NOTE | 2018-10-24 10:25 | Internal Med Progress Note ---
Hospitalist Progress Note - Encounter Date of Encounter: 10/24/18 Time of Encounter: 10:25 - Exam Vitals: Temp Pulse Resp BP Pulse Ox 97.2 F L 84 16 141/74 92 10/24/18 04:42 10/24/18 07:15 10/24/18 04:42 10/24/18 07:15 10/24/18 07:15 - Assessment and Plan (1) Pneumonia Current Visit: Yes Status: Acute (2) Alzheimer disease Current Visit: No Status: Chronic (3) Palliative care encounter Current Visit: Yes Status: Acute (4) Goals of care, counseling/discussion Current Visit: Yes Status: Acute - Time Spent with Patient Total time spent is greater than 50% in coordination of care (as documented) at patient's floor/unit and/or counseling patient: Internal Medicine: Result - Labs CBC & Chem 7: 10/22/18 06:37 10/23/18 13:47 Labs: BMP 10/23/18 13:47 Potassium 2.9 L Consult Discharge Plan - Plan Referrals: Yang Kyle MD [Primary Care Provider] - (1) Pneumonia Qualifiers: Pneumonia type: due to unspecified organism Laterality: unspecified laterality Lung location: unspecified part of lung Qualified Code(s): J18.9 - Pneumonia, unspecified organism (2) Alzheimer disease Qualifiers: Alzheimer's disease onset: unspecified onset Dementia behavioral disturbance: with behavioral disturbance Qualified Code(s): G30.9 - Alzheimer's disease, unspecified; F02.81 - Dementia in other diseases classified elsewhere with behavioral disturbance
--- NOTE | 2018-10-24 14:59 | Discharge Summary ---
- NOTES TO OUTPATIENT PROVIDER Notes to Outpatient Provider: As per hospice physician Orders not resulted at time of discharge: Pending orders 10/19/18 19:30 Culture,Blood [BC] Stat 10/19/18 22:06 Culture,Sputum with Gram Stain [RM] Routine 10/19/18 22:25 Occult Blood,Stool [BF] Routine Date of Encounter: 10/24/18 Time of Encounter: 14:58 - Discharge Diagnosis (1) Pneumonia Priority: Primary Status: Acute Assessment and Plan: Severe sepsis due to multifocal pneumonia unclear organism likely aspiration. Patient was on Zosyn and eventually it was just stopped on family request. Earlier patient was on vancomycin and Levaquin that also got to stop. blood culture NGTD, urine with no growth. Positive MRSA screen and negative urine antigen. Patient with recurrent aspiration. speech recommended NPO but familiy ok to feed with waiver for possible aspiration and keeping patient [id number]-[facility] Palliative care consultation was done to follow goals of care. They had extended communication with family and finally decided for ECF under [facility]. Family does not want to continue IV antibiotic and more inclined towards comfort care medication. Patient is being discharged from acute care under hemodynamically stable condition after getting recommendation from palliative care team and family wish Qualifiers: Pneumonia type: due to unspecified organism Laterality: unspecified laterality Lung location: unspecified part of lung Qualified Code(s): J18.9 - Pneumonia, unspecified organism (2) Alzheimer disease Priority: Primary Status: Chronic Assessment and Plan: Pt with advanced Alzheimer's. Nonverbal. Qualifiers: Alzheimer's disease onset: unspecified onset Dementia behavioral disturbance: with behavioral disturbance Qualified Code(s): G30.9 - Alzheimer's disease, unspecified; F02.81 - Dementia in other diseases classified elsewhere with behavioral disturbance (3) Palliative care encounter Priority: Primary Status: Acute Assessment and Plan: As mentioned above (4) Goals of care, counseling/discussion Priority: Primary Status: Acute Assessment and Plan: Patient is being transferred to [facility] facility (5) Cardiomyopathy Priority: Primary Status: Acute Assessment and Plan: EF 40-45%. Cardiology was consulted. Slight elevated troponin. ACS cannot be excluded, but possibly type II MA. given poor overall status conservative strategy recommended. c/w aspirin, statin and metoprolol. Cardiology signed off. Qualifiers: Cardiomyopathy type: unspecified Qualified Code(s): I42.9 - Cardiomyopathy, unspecified Hospital course: Ms. Douglass is a 68 year old female patient got admitted for hospital acquired pneumonia along with aspiration pneumonia. Patient had failed outpatient therapy with Levaquin. Patient also met severe sepsis criteria therefore food boluses and broader spectrum antibiotic is started. Chest x-ray with multifocal right lung pulmonary opacity. Elevated troponin therefore cardiology consulted. Please see detail in diagnosis section of discharge summary. Patient is being discharged to [facility] [place] [facility] -family decided after having long conversation with palliative care team Discharge discussed with: patient, family, social work, case management, foreign law consultant - Time Spent with Patient Total time spent providing and/or coordinating discharge services: Time spent: Greater than 30 minutes - Discharge Medications Prescriptions: New Levalbuterol Neb [Xopenex Neb] 1.25 mg IH [id number] vial.neb Atorvastatin [Lipitor] 10 mg PO HS tablet Metoprolol XL (24 HR) Succ [Toprol Xl] 12.5 mg PO DAILY tab.er.24h Haloperidol 0.5 mg PO Q6H PRN 5 Days #20 tablet PRN Reason: Agitation MORPHINE SUL Oral CONC [Roxanol Oral Conc] 5 mg PO Q3H PRN 4 Days #10 oral.syg PRN Reason: Dyspnea Sennosides/Docusate Sodium [Senna Plus] 2 each PO BID #12 tablet Continued Acetaminophen [Non-Aspirin] 650 mg PO Q4H PRN PRN Reason: Fever Ammonium Lactate 1 appl TP BID Aspirin Enteric Coated [Aspirin EC] 81 mg PO DAILY Bisacodyl [Gentle Laxative] 10 mg RC DAILY PRN PRN Reason: Constipation Buspirone HCl [Buspar] 10 mg PO BID Divalproex Sodium [Depakote Sprinkle] 250 mg PO TID FLUoxetine HCl [Fluoxetine HCl] 40 mg PO DAILY Gabapentin [Neurontin] 300 mg PO DAILY Hyoscyamine SL [Levsin Sl] 0.125 mg SL BID Levothyroxine Sodium 112 mcg PO 0630 Magnesium Hydroxide [Milk of Magnesia] 30 ml PO Q24H PRN PRN Reason: Constipation Seamus/Poly/DEX Opth OINT [Maxitrol OPTH Oint] 1 appl BOTH EYES HS Nystatin POWDER [Nystop] 1 appl TP TID Quetiapine Fumarate [Seroquel] 25 mg PO BID Quetiapine Fumarate [Seroquel] 100 mg PO BID Sennosides/Docusate Sodium [Colace 2-in-1 Tablet] 1 each PO DAILY Vitamin E 400 unit PO DAILY Home Medications: Acetaminophen [Non-Aspirin] 650 mg PO Q4H PRN 10/19/18 [History] Ammonium Lactate 1 appl TP BID 10/19/18 [History] Aspirin Enteric Coated [Aspirin EC] 81 mg PO DAILY 10/19/18 [History] Bisacodyl [Gentle Laxative] 10 mg RC DAILY PRN 10/19/18 [History] Buspirone HCl [Buspar] 10 mg PO BID 10/19/18 [History] Divalproex Sodium [Depakote Sprinkle] 250 mg PO TID 10/19/18 [History] FLUoxetine HCl [Fluoxetine HCl] 40 mg PO DAILY 10/19/18 [History] Gabapentin [Neurontin] 300 mg PO DAILY 10/19/18 [History] Hyoscyamine SL [Levsin Sl] 0.125 mg SL BID 10/19/18 [History] Levothyroxine Sodium 112 mcg PO 0630 10/19/18 [History] Magnesium Hydroxide [Milk of Magnesia] 30 ml PO Q24H PRN 10/19/18 [History] Seamus/Poly/DEX Opth OINT [Maxitrol OPTH Oint] 1 appl BOTH EYES HS 10/19/18 [History] Nystatin POWDER [Nystop] 1 appl TP TID 10/19/18 [History] Quetiapine Fumarate [Seroquel] 25 mg PO BID 10/19/18 [History] Quetiapine Fumarate [Seroquel] 100 mg PO BID 10/19/18 [History] Sennosides/Docusate Sodium [Colace 2-in-1 Tablet] 1 each PO DAILY 10/19/18 [History] Vitamin E 400 unit PO DAILY 10/19/18 [History] Atorvastatin [Lipitor] 10 mg PO HS tablet 10/24/18 [Rx] Haloperidol 0.5 mg PO Q6H PRN 5 Days #20 tablet 10/24/18 [Rx] Levalbuterol Neb [Xopenex Neb] 1.25 mg IH [id number] vial.neb 10/24/18 [Rx] MORPHINE SUL Oral CONC [Roxanol Oral Conc] 5 mg PO Q3H PRN 4 Days #10 oral.syg 10/24/18 [Rx] Metoprolol XL (24 HR) Succ [Toprol Xl] 12.5 mg PO DAILY tab.er.24h 10/24/18 [Rx] Sennosides/Docusate Sodium [Senna Plus] 2 each PO BID #12 tablet 10/24/18 [Rx] Allergies/Adverse Reactions: Allergy/AdvReac Type Severity Reaction Status Date / Time [place] Allergy Anaphylaxis Verified 10/19/18 17:35 Date of admission: 10/19/18 22:12 Primary care physician: Yang Kyle MD Consults: 10/19/18 22:07 Consult to Surgery [CONS] Routine Consulting Provider: Acute Care Surgery Reason for Consult: line placement Call Completed: Yes 10/19/18 22:19 Consult to Cardiology [CONS] Routine Comment: Consulting Provider: Cardiology [place] Reason for Consult: elevated troponins, ekg changes Call Completed: Yes 10/21/18 12:57 Consult to Nurse Navigator [CONS] Routine Comment: pn Consult to [place] [place] [CONS] Routine Reason for SW Consult: return to [place] 10/22/18 13:50 Consult to Palliative Care [CONS] Routine Comment: Consulting Provider: Palliative Care [place] Reason for Consult: goals of care discussion Call Completed: Yes - Constitutional Vitals: Temp Pulse Resp BP Pulse Ox 97.4 F L 79 20 119/71 94 10/24/18 11:01 10/24/18 11:01 10/24/18 11:01 10/24/18 11:01 10/24/18 11:01 General appearance: Present: A&O X 0, disheveled. Absent: answers questions appropriately Exam: General: In no acute distress. Respiratory exam: no accessory muscle use. Diffuse rhonchi bilaterally Cardiovascular exam: RRR, +S1, +S2. no murmur, gallop, rubs. GI/Abdominal exam: Non-distended, soft, no peritoneal signs. Extremities exam: no pedal edema Neurological exam: awake and alert, non verbal, not able to converse Skin exam: No skin rash noted - Patient Status Disposition: Hospice - Medical Facility Condition: Fair Overall status at discharge: patient is not back to baseline - Discharge Instructions Follow Up With: Yang Kyle MD [Primary Care Provider] - - Diet and Activity Diet: other
--- NOTE | 2018-10-24 16:09 | Physician Discharge Referral ---
ExtendedCare Referral Info Transfer To: ecf with hospice Provider in Charge after Transfer: [employer] - Diagnosis (1) Pneumonia Priority: Primary Status: Acute (2) Alzheimer disease Priority: Primary Status: Chronic (3) Palliative care encounter Priority: Primary Status: Acute (4) Goals of care, counseling/discussion Priority: Primary Status: Acute (5) Cardiomyopathy Priority: Primary Status: Acute Prognosis: Poor Aware of Diagnosis: Family Aware of Prognosis: Family - Transfer Medications Prescriptions: Haloperidol 0.5 mg PO Q6H PRN 5 Days #20 tablet PRN Reason: Agitation MORPHINE SUL Oral CONC [Roxanol Oral Conc] 5 mg PO Q3H PRN 4 Days #10 oral.syg PRN Reason: Dyspnea Sennosides/Docusate Sodium [Senna Plus] 2 each PO BID #12 tablet Home Medications: Acetaminophen [Non-Aspirin] 650 mg PO Q4H PRN 10/19/18 [History] Ammonium Lactate 1 appl TP BID 10/19/18 [History] Aspirin Enteric Coated [Aspirin EC] 81 mg PO DAILY 10/19/18 [History] Bisacodyl [Gentle Laxative] 10 mg RC DAILY PRN 10/19/18 [History] Buspirone HCl [Buspar] 10 mg PO BID 10/19/18 [History] Divalproex Sodium [Depakote Sprinkle] 250 mg PO TID 10/19/18 [History] FLUoxetine HCl [Fluoxetine HCl] 40 mg PO DAILY 10/19/18 [History] Gabapentin [Neurontin] 300 mg PO DAILY 10/19/18 [History] Hyoscyamine SL [Levsin Sl] 0.125 mg SL BID 10/19/18 [History] Levothyroxine Sodium 112 mcg PO 0630 10/19/18 [History] Magnesium Hydroxide [Milk of Magnesia] 30 ml PO Q24H PRN 10/19/18 [History] Seamus/Poly/DEX Opth OINT [Maxitrol OPTH Oint] 1 appl BOTH EYES HS 10/19/18 [History] Nystatin POWDER [Nystop] 1 appl TP TID 10/19/18 [History] Quetiapine Fumarate [Seroquel] 25 mg PO BID 10/19/18 [History] Quetiapine Fumarate [Seroquel] 100 mg PO BID 10/19/18 [History] Sennosides/Docusate Sodium [Colace 2-in-1 Tablet] 1 each PO DAILY 10/19/18 [History] Vitamin E 400 unit PO DAILY 10/19/18 [History] Atorvastatin [Lipitor] 10 mg PO HS tablet 10/24/18 [Rx] Haloperidol 0.5 mg PO Q6H PRN 5 Days #20 tablet 10/24/18 [Rx] Levalbuterol Neb [Xopenex Neb] 1.25 mg IH [id number] vial.neb 10/24/18 [Rx] MORPHINE SUL Oral CONC [Roxanol Oral Conc] 5 mg PO Q3H PRN 4 Days #10 oral.syg 10/24/18 [Rx] Metoprolol XL (24 HR) Succ [Toprol Xl] 12.5 mg PO DAILY tab.er.24h 10/24/18 [Rx] Sennosides/Docusate Sodium [Senna Plus] 2 each PO BID #12 tablet 10/24/18 [Rx] Allergies/Adverse Reactions: Allergy/AdvReac Type Severity Reaction Status Date / Time [place] Allergy Anaphylaxis Verified 10/19/18 17:35 - Respiratory Orders Smoking Cessation: Smoking cessation has been advised. For more information, call the [place] Tobacco Quit Line at 5-045-KAUNNOW. - Rehabiliation Orders Rehab Orders: Evaluation for Physical Therapy CERTIFICATION: I certify that the transfer of the above named patient to an Extended Care Facility is necessary for the continuing treatment of the diagnosis listed. The above information is true and accurate reflection of patient's current condition. Confidential - Redisclosure prohibited without a patient's written consent.
[2018-10-24 17:08] VITALS: BP 124/74
== END 2018-10-24 18:02 | disposition hospice, inpatient (51) | DRG 871 ==
LOC: EMEROOARM 17:22 → 2ANU 17:22 → ICNU 22:11 → SUATTDRO 22:12 → ICNU 23:20 → 2SOUTHHOLD 10-20 08:39 → 2ANU 10-20 16:49
PROVIDERS: ADMIT Internal Medicine; ATTEND Internal Medicine